=== PATIENT | female | born 1975 | race Caucasian/White ===

== ENCOUNTER 2018-12-18 11:07 | Emergency (ER) | payer BC, SELFPAY ==
[2018-12-18 11:12] VITALS: BP 132/87; PULSE 81; RESP 16; TEMP 36.3; O2SAT 99
--- NOTE | 2018-12-18 11:29 | W.ED.GENAD ---
Discharge Plan Disposition Patient Disposition: HOME Condition: Improving Discharge Details Chief Complaint: RespSymp Clinical Impression: Acute bronchitis Primary Care Provider: LUCILA HINES ED Provider: Robe Rojas Home Meds and New Rx's Prescriptions: New benzonatate [Tessalon Perles] 100 mg capsule 100 mg PO TID PRN (Reason: cough) Qty: 14 RF: 0 azithromycin 250 mg tablet See Rx Instructions .ROUTE .COMPLEX Qty: 6 RF: 0 Discharge Instructions Instructions: Acute Bronchitis (ED) Additional Instructions: Take medication as prescribed. Small, frequent sips of fluids to maintain hydration. May use Benadryl 25-50 mg at bedtime to assist with sleep in decongestion. Follow-up with regular doctor if not improving in 5 days time. Return for any acute concern Medical Decision Making 43-year-old female with antecedent 2 weeks of upper respiratory illness and seemed to get better and now has recurred over 5-7 days time with associated fever, cough, congestion. She is afebrile, well-appearing, with normal oxygenation. Likely she is progressing from a viral illness to a bacterial bronchitis and I will treat her with a course of azithromycin to cover atypical pathogens. She stable for outpatient management and will follow up with PMD if not improving HPI General Mode of arrival: ambulatory. Date/Time Provider Initiated Documentation: 12/18/18 11:10. Limitations to Documentation: no limitations. Information obtained by: patient. History of Present Illness 43 year old F presents to the emergency department with the chief complaint of Cough, fever, congestion, recurrent and now 1 week, described as moderate, Quality is described as dull and constant, and is localized to the chest. Patient reports no radiation. Patient started experiencing this day(s) and it has been constant. No relieving factors improve symptom(s), No exacerbating factors reported . Patient notes fever/chills and malaise. Patient did receive the following treatments prior to arrival, none Related Data Home Medications Medication Instructions Recorded Confirmed azithromycin See Rx Instructions .ROUTE 12/18/18 .COMPLEX #6 tab benzonatate [Tessalon Perles] 100 mg PO TID PRN #14 cap 12/18/18 Previous Rx's Medication Instructions Recorded azithromycin See Rx Instructions .ROUTE 12/18/18 .COMPLEX #6 tab benzonatate [Tessalon Perles] 100 mg PO TID PRN #14 cap 12/18/18 Allergies Allergy/AdvReac Type Severity Reaction Status Date / Time No Known Allergies Allergy Unverified 12/18/18 11:17 General Stated Complaint: RespSymp HYACINTH: 4 Review of Systems Review of Systems 8 systems reviewed and otherwise negative FOR[facility]LY [facility] Social History Smoking and Tabacco status: Never Exam Narrative Exam Narrative: GEN: awake, alert, tracks me through the room. Pleasant, well groomed, interactive. HEAD: Normocephalic, atraumatic ENT: Mucous membranes moist, oropharynx erythematous without swelling or exudate, External ear exam unremarkable EYES: PERRL, EOMI NECK: Full ROM, no SHABBIR, no menigismus CHEST/RESP: Nontender, clear to auscultation bilateral, no wheeze/rhonchi/rales CARDIOVASCULAR: RRR, no murmur, rub chai. 2+ Rad pulse bilateral ABDOMEN: Soft, nontender, no mass. +Bowel sounds EXT: Full ROM, no edema, no rash Neuro: Grossly normal neurologic exam, conversant, interactive. Psych: Speech fluent, thoughts congruent, affect normal Course Vital Signs Temperature 36.3 C L 12/18/18 11:12 Pulse 81 12/18/18 11:12 Respiratory Rate 16 12/18/18 11:12 Blood Pressure 132/87 12/18/18 11:12 Pulse Oximetry 99 12/18/18 11:12 Temperature 36.3 C L 12/18/18 11:12 Temperature Source Temporal Artery Scan 12/18/18 11:12 Pulse 81 12/18/18 11:12 Respiratory Rate 16 12/18/18 11:12 Respiratory Effort Non-Labored 12/18/18 11:17 Respiratory Depth Normal 12/18/18 11:17 Blood Pressure 132/87 12/18/18 11:12 Blood Pressure Position Sitting 12/18/18 11:12 Pulse Oximetry 99 12/18/18 11:12 Oxygen Delivery Method Room Air 12/18/18 11:12 Oxygen Flow Rate 0 12/18/18 11:12 Pain Level 0 12/18/18 11:12
== END 2018-12-18 11:35 | disposition home or self-care (01) ==
PROVIDERS: Emergency Provider Emergency Medicine; PCP Family Medicine
DX: J20.9 Acute bronchitis, unspecified (principal); R50.9 Fever, unspecified
CPT/HCPCS: 99283

== ENCOUNTER 2019-07-18 00:13 | Outpatient (CLI) | payer BC, SELFPAY ==
--- NOTE | 2019-07-18 08:22 | DI.MAMMO_ITS ---
SYMPTOM/DIAGNOSIS: SCREENING Z12.31 MAMMOGRAM: Mammograms were interpreted according to the usual protocol including computer analysis with CAD system, tomosynthesis and C view imaging. The breasts are heterogeneously dense. No dominant mass or clumped microcalcification is identified in either breast. Today's mammogram is compared with previous study of Oct 2016 and there has been no gross interval change in appearance since that time. CONCLUSION: No specific evidence of malignancy at this time. Routine screening examinations are suggested at yearly intervals due to the family history of breast carcinoma. Category 1, breast density category C. MQSA ASSESSMENT OF FINDINGS: Negative. Category 1. Patient will receive a letter notifying them of these results. Bi-RADS category C. The breasts are heterogeneously dense, which may obscure small masses.
== END 2019-07-18 00:33 ==
PROVIDERS: PCP Family Medicine; Visit Provider Family Medicine
DX: Z12.31 Encounter for screening mammogram for malignant neoplasm of breast (principal); Z80.3 Family history of malignant neoplasm of breast
CPT/HCPCS: 77063; 77067

== ENCOUNTER 2019-10-24 02:41 | Outpatient (CLI) | payer BC, SELFPAY ==
--- NOTE | 2019-10-24 08:08 | DI.US_ITS ---
EXAM: US PELVIS TRANSVAGINAL CLINICAL HISTORY: MENOMETRORRHAGIA, N92.1, ENLARGED UTERUS/IRREGULAR BLEEDING TECHNIQUE: Ultrasound performed using standard protocol. Transabdominal and transvaginal exams were performed COMPARISON: No exams were available for comparison FINDINGS: The transabdominal images are limited by lack of bladder distention. Ascites is noted in the pelvis a s well as in the right upper quadrant. The uterus is retroflexed. The uterus measures 10.9 x 6.5 x 6. 9 cm. Uterus was not well seen either transabdominally or transvaginally. There is a question of a 2 centimeter fibroid near the fundus. The endometrial stripe measures 7 millimeters in thickness. The o varies were not well seen. They are roughly normal in size. IMPRESSION: Limited exam. The ovaries were not visualized. The uterus is also suboptimally evaluated. Ascites is noted in the pelvis and right upper quadrant. A CT of the abdomen and pelvis is recommended if no t already performed elsewhere.
== END 2019-10-24 03:01 ==
PROVIDERS: PCP Family Medicine; Visit Provider Family Medicine
DX: N85.2 Hypertrophy of uterus (principal); N92.6 Irregular menstruation, unspecified; R18.8 Other ascites
CPT/HCPCS: 76830; 76856

== ENCOUNTER 2019-10-27 01:22 | Outpatient (CLI) | payer BC, SELFPAY ==
[2019-10-27 08:19] LABS: INR 1.1 (0.9-1.1); Prothrombin Time 10.9 sec (9.3-11.0)
[2019-10-27 09:20] LABS: ALT 14 U/L (14-59); AST 12 U/L (15-37); Albumin 3.1 g/dL (3.4-5.0); Alkaline Phosphatase 64 U/L (46-116); Anion Gap 8.9 mmol/L (3-11); BUN 12 mg/dL (7-18); Bilirubin, Total 0.2 mg/dL (0.2-1.0); CO2 27.1 mmol/L (21.0-32.0); CREATININE 0.73 mg/dL (0.55-1.02); Chloride 106 mmol/L (98-107); Glucose 107 mg/dL (74-106); Potassium 4.7 mmol/L (3.5-5.1); Sodium 142 mmol/L (136-145); Total Protein 6.7 g/dL (6.4-8.2)
== END 2019-10-27 01:42 ==
PROVIDERS: PCP Family Medicine; Visit Provider Family Medicine
DX: R18.8 Other ascites (principal)
CPT/HCPCS: 36415; 80053; 85610

== ENCOUNTER 2019-10-31 03:27 | Outpatient (CLI) | payer BC, SELFPAY ==
[2019-10-31] MEDS: Breeza Beverage 473 ML BTL PO (08:05)
[2019-10-31] MEDS: Omnipaque 350 MG/ML 100 ML BTL IJ (08:06)
[2019-10-31] MEDS: Omnipaque 350 MG/ML 50 ML BTL IJ (08:06)
--- NOTE | 2019-10-31 08:28 | DI.CT_ITS ---
EXAM: CT ABDOMEN PELVIS W CLINICAL HISTORY: ASCITES ON PELVIC US,R18.8,IRREGULAR MENSES, ? MASS OR CIRRHOTIC-APPEARING LIVER TECHNIQUE: Imaging Protocol: Axial computed tomography images with coronal and sagittal reformatted images were created and reviewed CONTRAST MATERIAL: Intravenous: Omnipaque 350 Contrast volume:100 mL contrast route:IV - Oral: Yes COMPARISON: No exams were available for comparison FINDINGS: ABDOMEN: Lung Bases: Unremarkable. Liver: There are several tiny hypodense lesions in the liver. They are too small for further characte rization. The portal, superior mesenteric and splenic veins are patent. Gallbladder and biliary tract: No radiodense calculus or dilation. Pancreas: Normal density, no abnormal calcifications or inflammatory process. Spleen: There is a 1.2 centimeter hypodense lesion at the superior aspect of the spleen. Kidneys: Normal size, contour and axis. No radiodense stones or obstructive uropathy. No masses seen. Adrenal glands: No masses seen. Abdominal Aorta: Abdominal portion non-dilated. PELVIS: Bladder: Symmetric distention, no gross wall thickening. Bowel: No obstruction or bowel wall thickening. The appendix is normal in size without evidence of ad jacent mesenteric fat stranding or adjacent fluid collection. Peritoneal cavity: There is a large amount of abdominal pelvic ascites. There are 4 dense masses see n in the dependent portion of the pelvis. The largest is seen anterior to the rectum and measures 5. 8 cm transverse by 4.5 cm AP by 4.3 cm craniocaudad. The next largest mass is seen in the left pelvi s and measures 5.9 cm AP by 3.5 cm transverse by 2.8 cm craniocaudad. Bones: Degenerative changes are seen in the spine. There is a sclerotic focus in the right iliac bon e adjacent to the sacroiliac joint. Reproductive organs: The uterus has a lobulated contour. It is heterogeneously enhancing. Ovaries a re visualized. They appear grossly unremarkable. Impression: 1. Four dense masses seen in the dependent portion of the pelvis. Metastatic disease, adenopathy and fibrosis should be considered. 2. Large abdominal and pelvic ascites. 3. Tiny hypodensities seen within the liver. They are too small for further characterization. 4. Density seen in the right iliac bone adjacent to the sacroiliac joint. All benign causes may be c onsidered. Given the above findings metastatic focus cannot be excluded. DATA REPOSITORY: All CT scans at this facility are submitted to the National Radiology Data Registry (NRDR) Dose Index Registry (DIR) with the [employer] (A[employer]). RADIATION OPTIMIZATION: All CT scans at this facility use at least one of these dose optimization te chniques: automated exposure control; mA and/or kV adjustment per patient size (includes targeted exa ms where dose is matched to clinical indication); or iterative reconstruction.
== END 2019-10-31 03:47 ==
PROVIDERS: PCP Family Medicine; Visit Provider Family Medicine
DX: R18.8 Other ascites (principal); N92.6 Irregular menstruation, unspecified; K76.89 Other specified diseases of liver; D73.89 Other diseases of spleen; R19.07 Generalized intra-abdominal and pelvic swelling, mass and lump
CPT/HCPCS: 74177; J3490; Q9967

== ENCOUNTER 2019-11-17 07:58 | Outpatient (CLI) | payer BC, SELFPAY ==
--- NOTE | 2019-11-17 09:06 | DI.MRI_ITS ---
EXAM: MR PELVIS WO/W CLINICAL HISTORY: PELVIC MASS, CA RECTOVAGINAL SEPTUM, C76.3. TECHNIQUE: Multiplanar multisequence MRI was performed. COMPARISON: CT ABDOMEN PELVIS W from 10/31/2019 FINDINGS: MR examination of the pelvis was performed according to the usual protocol including pre and post con trast multi planer T1 fat sat imaging. Recent CT showed multiple pelvic masses and marked abdominal ascites. These findings are again seen on MR. The masses measure in the 5.5-6 cm in diameter range a nd are mildly heterogeneous in signal with marked enhancement on post contrast imaging. Right ovary grossly unremarkable. Left ovary contains multiple cysts, indeterminate for neoplasm. Uterus contains an anterior lower uterine segment fibroid. Unremarkable appearance of the endometria l stripe. Multiple nabothian cysts noted. Note is also made of an approximately 18 millimeter in di ameter Bartholin's cyst. No gross mass noted in the region of the rectovaginal septum. No gross pel sonia adenopathy. Sclerotic right iliac bone lesion noted on CT shows mildly heterogeneous appearance on T1 and T2 weighted imaging with mild lesional enhancement noted on post contrast imaging, the poss ibility that this represents a metastatic lesion is raised. IMPRESSION: Multiple pelvic masses as noted on recent CT along with massive pelvo-abdominal ascites consistent wi th metastatic disease. Requisition raises the possibility of a mass of the rectovaginal septum and n o rectovaginal septum mass is identified. An 18 millimeter Bartholin's cyst and multiple nabothian c ysts are noted.
[2019-11-17] MEDS: Normal Saline Flush 10 ML SYR IVP (09:45)
[2019-11-17] MEDS: Gadoterate meglumine 20 ML VIAL 17 ML IVP (09:47)
== END 2019-11-17 08:18 ==
PROVIDERS: PCP Family Medicine; Visit Provider Obstetrics & Gynecology Gynecologic Oncology
DX: R19.09 Other intra-abdominal and pelvic swelling, mass and lump; R18.8 Other ascites; N83.292 Other ovarian cyst, left side; D25.9 Leiomyoma of uterus, unspecified; N88.8 Other specified noninflammatory disorders of cervix uteri
CPT/HCPCS: 72197

== ENCOUNTER 2019-12-19 07:12 | Day surgery (SDC) | payer BC, SELFPAY ==
--- NOTE | 2019-12-19 07:24 | HPE_ITS ---
Date of service: 12/19/19 Time of Service: 07:24 Assessment and Plan Assessment and plan (1) Ovarian cancer: Status: Chronic Assessment and plan: I offered Mediport placement. The procedure was described including the risks of infection, bleeding, thrombosis, injury to vascular structures, pneumothorax with need for chest tube placement. She agrees to proceed. Qualifiers: Laterality: unspecified laterality Qualified Code(s): C56.9 - Malignant neoplasm of unspecified ovary History of Present Illness Narrative: Patient presents for Mediport placement for chemotherapy as a part of treatment for ovarian cancer. Review of Systems Constitutional Constitutional: Denies fatigue and Denies headache(s) Eyes Eyes: Denies change in vision ENT Ears, Nose, Mouth, and Throat: Denies headache(s) and Denies neck mass Cardiovascular Cardiovascular: Denies chest pain, Denies edema, Denies palpitations and Denies dyspnea Respiratory Respiratory: Denies cough, Denies dyspnea and Denies wheezing Gastrointestinal Gastrointestinal: Denies hematochezia Musculoskeletal Musculoskeletal: Denies joint swelling Integumentary/Breasts Skin/Breast: Denies new lesions and Denies rash Neurologic Neurologic: Denies confusion, Denies headache(s) and Denies focal weakness Psychiatric Psychiatric: Reports system reviewed and no additional complaints, except as docu and Denies confusion Endocrine Endocrine: Denies fatigue and Denies palpitations Hematologic/Lymphatic Hematologic/Lymphatic: Denies easy bleeding and Denies lymphadenopathy Allergic/Immunologic Allergic/Immunologic: Denies wheezing [facility] Medical History (Updated 12/19/19 @ 08:05 by Saira Alexander MD) Ovarian cancer (Chronic) Surgical History Family hx total abdominal hysterectomy/bilateral salpingo-oophorectomy (Acute) 11/21/2019 Total abdominal hysterectomy, bilateral salpingo-oophorectomy, omentectomy, rectosigmoidectomy with end colostomy and Claire's pouch, cytoreduction with resection of pelvic masses, left ureterolysis, resection of tumor on bladder peritoneum, argon beam of tumor on posterior vagina and paracolic gutter, temporary bilater ureteral stent placement (removed upon completion of case) Social History Smoking/Tobacco Use Status: Never Alcohol Intake: current Alcohol Intake frequency: holidays/special occasions only Drug use: Never Substance use type: does not use Do you feel safe at home: Yes Do you feel safe in your relationship?: Yes Meds Home Medications and Allergies Home Medications Medication Instructions Recorded Confirmed Type acetaminophen 650 mg PO Q6H PRN PRN 12/15/19 12/19/19 History calcium carbonate-vit D3-min 1 tab PO DAILY 12/15/19 12/19/19 History ibuprofen 600 mg PO Q6H PRN 12/15/19 12/19/19 History multivitamin 1 cap PO DAILY 12/15/19 12/19/19 History omeprazole 20 mg PO DAILY 12/15/19 12/19/19 History oxycodone 5 mg PO Q6H PRN 12/15/19 12/15/19 History Allergies Allergy/AdvReac Type Severity Reaction Status Date / Time No Known Allergies Allergy Unverified 12/19/19 07:27 Exam Const General: not in acute distress Nutritional Appearance: well nourished Orientation: oriented x3 HENMT Head: normal to inspection Eyes Sclera: sclerae normal Pupils: PERRL Neck Neck: no lymphadenopathy Carotids: no bruits Resp Effort & Inspection: normal respiratory effort Auscultation: clear to auscultation bilaterally and no wheezes Cardio Rate: regular rate Rhythm: regular rhythm GI Inspection: non-distended Palpation: soft, no hepatosplenomegaly, no hernias and nontender Skin General skin exam: no rashes or lesions noted Neuro General: alert Cognition: normal cognition Extrem General: normal to inspection Psych Affect: normal affect Attitude: cooperative
[2019-12-19 07:29] VITALS: BP 127/85; PULSE 78; RESP 16; TEMP 36.6; O2SAT 100
[2019-12-19] MEDS: Lactated Ringers 1,000 ML 80 ML IV (07:46)
--- NOTE | 2019-12-19 08:16 | W.PM.DSUDISC ---
Discharge Plan Disposition Patient Disposition: HOME Condition: Good Discharge Details Reason For Visit: Mediport placement Attending Provider: Saira Alexander Primary Care Provider: LUCILA HINES Home Meds and New Rx's Prescriptions: Continued acetaminophen 325 mg Tablet 650 mg PO Q6H PRN PRNRF: 0 ibuprofen 200 mg Tablet 600 mg PO Q6H PRNRF: 0 omeprazole 20 mg Capsule,Delayed Release(Dr/Ec) 20 mg PO DAILY RF: 0 multivitamin Capsule 1 cap PO DAILY RF: 0 oxycodone 5 mg Tablet 5 mg PO Q6H PRNRF: 0 calcium carbonate-vit D3-min 600 mg calcium- 200 unit Tablet 1 tab PO DAILY RF: 0 Discharge Instructions Additional Instructions: The top bandage can be removed in 2-3 days. The steri strips underneath will usually stick for about a week. When the edges start to curl up, they can be removed. It is okay to shower tomorrow, the water can run over the dressing/steristrips Do not swim or soak in a tub for two weeks Call for any concerns including fever, shortness of breath, incision redness or drainage. Keep activity light for two weeks. Walking and stairs are fine. Do not drive if on narcotic pain meds or if limited by pain. May use Tylenol alternating with ibuprofen for pain control. Ice is also an option. The maximum dose for Tylenol is 4000 mg/day. May use ibuprofen 800 mg every 8 hours as needed. If concerned about constipation, you may use a stool softener or milk of magnesia. The port can be used immediately. If not in use it should be flushed every 4-6 weeks. Activity:: Activity as Tolerated Remove Dressings/Wound Care:: 48 hours Shower/Bathe:: 24 hours Diet:: As Tolerated DS: Diagnosis Discharge Diagnosis (1) Ovarian cancer: Status: Chronic (2) Port-A-Cath in place: Status: Acute
[2019-12-19] MEDS: ceFAZolin 2 GM/50 ML BAG IVPB (08:44)
[2019-12-19] MEDS: Lidocaine 1% Pres-Free 5 ML VIAL (08:54)
[2019-12-19] MEDS: Normal Saline 50 ML (09:06)
[2019-12-19] MEDS: Heparin 500 UNITS/5 ML SYRINGE (09:28)
--- NOTE | 2019-12-19 09:47 | DI.RAD_ITS ---
EXAM: XR PORTABLE CHEST AP INDICATION: Mediport placement. COMPARISON: No exams were available for comparison TECHNIQUE: 2D digital imaging was performed. FINDINGS: Heart size is within normal limits. A port has been placed via the left subclavian with the tip in t he SVC. There is no evidence of pneumothorax. The lungs appear clear. IMPRESSION: Satisfactory port placement.
--- NOTE | 2019-12-19 10:13 | DI.RAD_ITS ---
EXAM: RF LINE PLACEMENT OR CLINICAL HISTORY: ovarian cancer TECHNIQUE: C-arm fluoroscopy was provided for Dr. Alexander for guidance with placing a port. COMPARISON: No exams were available for comparison FINDINGS: Hard copy images show placement of port via the left subclavian. The tip projects in the expected l ocation of the superior vena cava. Please see procedure note for details. FLUORO TIME: 8.0 seconds
[2019-12-19 10:15] VITALS: BP 142/80; PULSE 60; RESP 18; TEMP 36.6; O2SAT 100
--- NOTE | 2019-12-19 15:32 | ROE_ITS ---
DATE OF PROCEDURE: December 19, 2019 PREOPERATIVE DIAGNOSIS: Ovarian cancer. POSTOPERATIVE DIAGNOSIS: Same. PROCEDURE: Left subclavian Mediport. SURGEON: Saira Alexander M.D. ANESTHESIA: Local and sedation. INDICATIONS: This is a 44-year-old woman who will soon begin chemotherapy for ovarian cancer. She p resents for a Mediport placement. PROCEDURE: She was placed supine on the operating table and her arms were carefully tucked. Her bandar ateral chest and neck were prepped and draped sterilely. The skin of the left chest wall was infiltr ated with local anesthetic. The 18 gauge needle was used to access the left subclavian vein after th ree passes. The wire threaded easily and was shown to be in the superior vena cava using fluoroscopy . The needle was removed and the wire clipped to the drape. An incision was made extending inferom edially from the wire and cautery used to create a pocket above the pectoralis muscle. The catheter was attached to the port and the catheter length trimmed using fluoroscopy. The Peel-Away and dilato r were passed over the wire and then the wire and dilator removed. The port catheter was passed down the Peel-Away, which was then removed. The catheter was shown to be in good position using fluoros copy. The port was sutured to the chest wall with #2-0 Prolene sutures and the subcutaneous tissue c losed with interrupted buried #3-0 Vicryl sutures. The skin was closed with a running #4-0 Monocryl subcuticular stitch. The port was accessed with the Jones needle and aspirated nicely. It was then flushed with 5 cc's of heparinized saline. The wound was dressed with Steri-Strips, a 2x2 and a Tega derm. She tolerated the procedure well and was stable to recovery. A post-procedure chest film was reviewed and showed the port to be in good position and no evidence of pneumothorax. cc: Elizabeth Vargas M.D.
== END 2019-12-19 10:35 | disposition home or self-care (01) ==
PROVIDERS: PCP Family Medicine; Visit Provider Surgery
PROC: (CPT 36561; principal; 2019-12-19 07:30)
DX: C56.9 Malignant neoplasm of unspecified ovary (principal); Z45.2 Encounter for adjustment and management of vascular access device
CPT/HCPCS: 36561; 77001; NC; 71045; C1788; J0690; J1100; J1885; J2001; J2250; J2405

== ENCOUNTER 2020-01-14 13:23 | Emergency (ER) | payer BC, SELFPAY ==
[2020-01-14] VITALS (12 sets, daily range): BP systolic 126–157; BP diastolic 73–93; PULSE 78–94; RESP 16–17; TEMP 36.6; O2SAT 86–100
--- NOTE | 2020-01-14 13:55 | W.ED.GENAD ---
Discharge Plan Disposition Patient Disposition: HOME Condition: Stable Discharge Details Chief Complaint: Abd Prob Clinical Impression: Rectal pressure, Rectal bleeding, Status post colostomy Primary Care Provider: LUCILA HINES ED Provider: Chelly Hays Home Meds and New Rx's Prescriptions: Continued acetaminophen 325 mg Tablet 650 mg PO Q6H PRN PRNRF: 0 ibuprofen 200 mg Tablet 600 mg PO Q6H PRNRF: 0 multivitamin Capsule 1 cap PO DAILY RF: 0 calcium carbonate-vit D3-min 600 mg calcium- 200 unit Tablet 1 tab PO DAILY RF: 0 Discharge Instructions Instructions: Rectal Bleeding (ED) Additional Instructions: It can be expected to have rectal pressure and mucus with a colostomy. Sometimes with increased pressure, you can have some bleeding. Call your colorectal surgeon tomorrow morning to schedule a follow-up appointment for reevaluation. Drink plenty of fluids and get plenty of rest. Return to the emergency department if you develop any worsening or new concerning symptoms such as fever, abdominal pain, vomiting, or worsening rectal bleeding. Discharge Data Discharge Physician: Chelly Hays Medical Decision Making 1345 -- 44-year-old female with history of ovarian cancer with metastasis to the colon with history of hysterectomy, bilateral salpingotomy, rectosigmoidectomy in November at [facility] presents with persistent rectal pressure and clear mucus since the surgery now with worsening rectal pressure and bloody mucus today. First chemo treatment 3 days ago. Denies fever, abdominal pain, or vomiting. Vitals within normal limits. Patient appears nontoxic. Abdomen soft nontender. Formed brown stool in colostomy bag. Normal external rectal exam. We will check screening labs and discuss with [facility] general surgery. 1700 --labs reviewed and unremarkable. Normal white blood cell count, hemoglobin and electrolytes. Lactate normal. Urinalysis negative. 1715 --Case discussed with [facility] general [facility] who reviewed patient's records -they state that it can be expected for patient to have rectal pressure with bloody mucus with a history of her surgery. Reassuring that patient has no fever, normal vitals, normal white blood cell count and hemoglobin that patient symptoms are expected and can recur. Will leave a note for patient's colorectal surgeon and gynecology oncologist. Patient had significant improvement with dose of morphine here. She was given another dose prior to discharge. She feels comfortable going home. Discussed that Tylenol would be recommended for continued pain. Discussed the concern with narcotics due to risk of constipation with her colostomy. Patient states she would rather not have narcotics and will call her colorectal surgeon tomorrow for follow-up. Medical Records Medical records reviewed: Yes I reviewed the patient's medical records. Lab Data Lab results reviewed: Yes I reviewed the patient's lab results. Labs: Laboratory Tests Range/Units 01/14/20 01/14/20 01/14/20 14:41 14:41 14:41 WBC (4.4-10.8) k/cumm 9.37 RBC (4.00-5.20) m/cumm 5.11 Hgb (12.0-15.5) g/dL 12.8 Hct (36.0-46.0) % 39.4 MCV (80-95) fL 77.1 L MCH (27.0-33.0) pg 25.0 L MCHC (32.0-36.0) g/dL 32.5 RDW (11.7-14.6) % 14.4 Plt Count (130-400) x1000/uL 466 H MPV (8.0-11.0) fL 9.2 Immature Gran % % 0.1 Neutrophils % 78.4 Lymphocytes % 18.2 Monocytes % 2.6 Eosinophils % 0.5 Basophils % 0.2 Absolute Neutrophils (1.2-6.7) k/cumm 7.34 H Absolute Lymphocytes (1.2-3.4) k/cumm 1.71 Absolute Monocytes (0.11-0.7) k/cumm 0.24 Absolute Eosinophils (0.0-0.7) k/cumm 0.05 Absolute Basophils (0.0-0.2) k/cumm 0.02 Sodium (136-145) mmol/L 137 Potassium (3.5-5.1) mmol/L 3.8 Chloride (98-107) mmol/L 100 Carbon Dioxide (21.0-32.0) mmol/L 26.7 Anion Gap (3-11) mmol/L 10.3 BUN (7-18) mg/dL 13 Creatinine (0.55-1.02) mg/dL 0.69 Estimated GFR/1.73 m2 (mL/min/1.73m2) >= 60.00 Glucose (74-106) mg/dL 111 H Lactate (0.6-1.4) mmol/L 1.3 Calcium (8.5-10.1) mg/dL 9.1 Total Bilirubin (0.2-1.0) mg/dL 0.6 AST (15-37) U/L 14 L ALT (14-59) U/L 17 Alkaline Phosphatase (46-116) U/L 73 Total Protein (6.4-8.2) g/dL 7.6 Albumin (3.4-5.0) g/dL 3.8 Urine Color (Yellow) Urine Clarity (Clear) Urine pH (5-8) Ur Specific [place] (1.005-1.025) Urine Protein (Negative) mg/dL Urine Ketones (Negative) mg/dL Urine Blood (Negative) Urine Nitrite (Negative) Urine Bilirubin (Negative) Urine Urobilinogen (Up TO 0.2) EU/dL Ur Leukocyte Esterase (Negative) Urine Glucose (Negative) mg/dL Range/Units 01/14/20 15:40 WBC (4.4-10.8) k/cumm RBC (4.00-5.20) m/cumm Hgb (12.0-15.5) g/dL Hct (36.0-46.0) % MCV (80-95) fL MCH (27.0-33.0) pg MCHC (32.0-36.0) g/dL RDW (11.7-14.6) % Plt Count (130-400) x1000/uL MPV (8.0-11.0) fL Immature Gran % % Neutrophils % Lymphocytes % Monocytes % Eosinophils % Basophils % Absolute Neutrophils (1.2-6.7) k/cumm Absolute Lymphocytes (1.2-3.4) k/cumm Absolute Monocytes (0.11-0.7) k/cumm Absolute Eosinophils (0.0-0.7) k/cumm Absolute Basophils (0.0-0.2) k/cumm Sodium (136-145) mmol/L Potassium (3.5-5.1) mmol/L Chloride (98-107) mmol/L Carbon Dioxide (21.0-32.0) mmol/L Anion Gap (3-11) mmol/L BUN (7-18) mg/dL Creatinine (0.55-1.02) mg/dL Estimated GFR/1.73 m2 (mL/min/1.73m2) Glucose (74-106) mg/dL Lactate (0.6-1.4) mmol/L Calcium (8.5-10.1) mg/dL Total Bilirubin (0.2-1.0) mg/dL AST (15-37) U/L ALT (14-59) U/L Alkaline Phosphatase (46-116) U/L Total Protein (6.4-8.2) g/dL Albumin (3.4-5.0) g/dL Urine Color (Yellow) Straw Urine Clarity (Clear) Clear Urine pH (5-8) 7.0 Ur Specific [place] (1.005-1.025) 1.020 Urine Protein (Negative) mg/dL Negative Urine Ketones (Negative) mg/dL Trace H Urine Blood (Negative) Negative Urine Nitrite (Negative) Negative Urine Bilirubin (Negative) Negative Urine Urobilinogen (Up TO 0.2) EU/dL 0.2 Ur Leukocyte Esterase (Negative) Negative Urine Glucose (Negative) mg/dL Negative ECG Data Attestation: I personally reviewed and interpreted this ECG (s) as follows: HPI General Mode of arrival: ambulatory. Date/Time Provider Initiated Documentation: 01/14/20 13:25. Limitations to Documentation: no limitations. Information obtained by: patient. HPI Narrative: Patient is a 44-year-old female who has a history of ovarian cancer with metastasis to the colon who is 2 months status post total abdominal hysterectomy, bilateral salpingo-neurectomy, rectosigmoidectomy presents for persistent rectal pain since her surgery in November, worse today and now with bloody mucus from rectum. She attempted to call her surgeons at [facility] but did not get a response. She states she has had rectal pain with clear mucus since her surgery, but states the rectal pressure is worse today and now associated with bloody mucus. She states she received her first chemo treatment 3 days ago. She denies any fever, nausea, vomiting, abdominal pain. Related Data Home Medications Medication Instructions Recorded Confirmed acetaminophen 650 mg PO Q6H PRN PRN 12/15/19 01/14/20 calcium carbonate-vit D3-min 1 tab PO DAILY 12/15/19 01/14/20 ibuprofen 600 mg PO Q6H PRN 12/15/19 01/14/20 multivitamin 1 cap PO DAILY 12/15/19 01/14/20 Allergies Allergy/AdvReac Type Severity Reaction Status Date / Time No Known Allergies Allergy Unverified 01/14/20 13:35 General Stated Complaint: Abd Prob HYACINTH: 3 Review of Systems All systems reviewed & are unremarkable except as noted in HPI and below Constitutional Constitutional: Reports as per HPI, Denies chills and Denies fever(s) Eyes Eyes: Denies blurry vision ENT Ears, Nose, Mouth, and Throat: Denies dizziness, Denies sore throat and Denies throat swelling Cardiovascular Cardiovascular: Denies chest pain and Denies dyspnea Respiratory Respiratory: Denies cough and Denies dyspnea Gastrointestinal Gastrointestinal: Denies abdominal pain, Denies diarrhea, Denies vomiting and Reports other (Rectal pain, bloody mucus from rectum) Genitourinary Genitourinary: Denies hematuria and Denies dysuria Musculoskeletal Musculoskeletal: Denies back pain and Denies numbness Integumentary/Breasts Skin/Breast: Denies lesions and Denies rash Neurologic Neurologic: Denies dizziness, Denies focal weakness and Denies numbness Allergic/Immunologic Allergic/Immunologic: Denies throat swelling [facility] Medical History (Updated 01/14/20 @ 17:10 by Chelly Hays DO) Ovarian cancer (Chronic) Social History Smoking/Tobacco Use Status: Never Alcohol Intake: current Alcohol Intake frequency: holidays/special occasions only Drug use: Never Substance use type: does not use Do you feel safe at home: Yes Do you feel safe in your relationship?: Yes Exam Const General: cooperative, healthy appearing and no acute distress HENMT Head: normal to inspection Face and sinus: normal facial exam Eyes General: appearance normal, both eyes and all related structures EOM: EOM intact bilaterally Neck Neck: normal visual inspection and No submandibular swelling Lymphatic: no lymphadenopathy noted Chest Chest: normal inspection of the chest and no tenderness Resp Effort & Inspection: normal respiratory effort and able to speak in complete sentences Auscultation: clear to auscultation bilaterally Cardio Rate: regular rate Rhythm: regular rhythm GI Inspection: normal to inspection Palpation: soft, not firm and not rigid Auscultation: normal bowel sounds Other: Colostomy bag noted in left lower quadrant with brown formed stool in bag. No blood noted. Normal inspection to rectum. No hemorrhoids. No blood noted around rectum. Guaiac negative. Skin General skin exam: no rashes or lesions noted Neuro General: alert, awake and oriented x3 Cognition: normal cognition Speech: speech normal Motor: muscle tone normal throughout Sensory Exam: no sensory deficits noted Extrem General: normal to inspection, full ROM, normal capillary refill, no calf tenderness bilaterally and no edema Psych Appearance: grossly normal Mental Status: mental status grossly normal Speech and Movement: speech and movement normal Affect: normal affect Course Vital Signs Vital signs: Vital Signs Temperature 97.9 F 01/14/20 13:30 Pulse 94 H 01/14/20 13:30 Respiratory Rate 16 01/14/20 13:30 Blood Pressure 157/93 H 01/14/20 13:30 Pulse Oximetry 100 01/14/20 13:30 Temperature 97.9 F 01/14/20 13:30 Temperature Source Skin 01/14/20 13:30 Pulse 94 H 01/14/20 13:30 Respiratory Rate 16 01/14/20 13:30 Respiratory Effort Non-Labored 01/14/20 13:30 Blood Pressure 157/93 H 01/14/20 13:30 Blood Pressure Position Sitting 01/14/20 13:30 Pulse Oximetry 100 01/14/20 13:30 Oxygen Delivery Method Room Air 01/14/20 13:30 Oxygen Flow Rate 0 01/14/20 13:30 Pain Level 6 01/14/20 13:30
[2020-01-14 14:51] LABS: Lactate 1.3 mmol/L (0.6-1.4)
[2020-01-14 14:52] LABS: Abs Immature Grans 0.01 k/cumm (0.0-0.09); Absolute Basophil Count 0.02 k/cumm (0.0-0.2); Absolute Eosinophil Count 0.05 k/cumm (0.0-0.7); Absolute Lymphocyte Count 1.71 k/cumm (1.2-3.4); Absolute Monocyte Count 0.24 k/cumm (0.11-0.7); Absolute Neutrophil Count 7.34 k/cumm (1.2-6.7); Basophils % 0.2; Eosinophils % 0.5; HCT 39.4 % (36.0-46.0); HGB 12.8 g/dL (12.0-15.5); Immature Grans % 0.1 %; Lymphocytes % 18.2; Mean Corp. HGB Concentration 32.5 g/dL (32.0-36.0); Mean Corpuscular Volume 77.1 fL (80-95); Mean Platelet Volume 9.2 fL (8.0-11.0); Monocytes % 2.6; Neutrophils % 78.4; Platelet Count 466 x1000/uL (130-400); RBC 5.11 m/cumm (4.00-5.20); RBC Distribution Width 14.4 % (11.7-14.6); White Blood Cell Count 9.37 k/cumm (4.4-10.8)
[2020-01-14] MEDS: Normal Saline 1,000 ML 1000 ML IV (14:55)
[2020-01-14 15:20] LABS: ALT 17 U/L (14-59); Albumin 3.8 g/dL (3.4-5.0); Alkaline Phosphatase 73 U/L (46-116); Anion Gap 10.3 mmol/L (3-11); BUN 13 mg/dL (7-18); Bilirubin, Total 0.6 mg/dL (0.2-1.0); CO2 26.7 mmol/L (21.0-32.0); CREATININE 0.69 mg/dL (0.55-1.02); Calcium 9.1 mg/dL (8.5-10.1); Chloride 100 mmol/L (98-107); Glucose 111 mg/dL (74-106); Potassium 3.8 mmol/L (3.5-5.1); Sodium 137 mmol/L (136-145); Total Protein 7.6 g/dL (6.4-8.2)
[2020-01-14 15:31] LABS: AST 14 U/L (15-37)
[2020-01-14 15:47] LABS: Bilirubin Negative (Negative); Blood Negative (Negative); Clarity Clear (Clear); Glucose Negative (Negative); Ketones Trace mg/dL (Negative); Leukocyte Esterase Negative (Negative); Nitrite Negative (Negative); Urobilinogen 0.2 EU/dL (Up TO 0.2)
--- NOTE | 2020-01-14 16:49 | NUR.NOTE ---
Nursing Note: Pt care report transferred to William (RN).
== END 2020-01-14 18:35 | disposition home or self-care (01) ==
PROVIDERS: Emergency Provider Physician Assistant; PCP Family Medicine
DX: K62.5 Hemorrhage of anus and rectum (principal); K62.89 Other specified diseases of anus and rectum; Z93.3 Colostomy status; C56.9 Malignant neoplasm of unspecified ovary; C78.5 Secondary malignant neoplasm of large intestine and rectum; Z79.899 Other long term (current) drug therapy; Z90.49 Acquired absence of other specified parts of digestive tract
CPT/HCPCS: 36415; 80053; 96361; 96376; 99284; 81003; 83605; 85025

== ENCOUNTER 2020-02-01 01:18 | Outpatient (RCR) | payer BC, SELFPAY ==
[2020-01-11] MEDS: Normal Saline Flush 10 ML SYR IVP (07:43)
[2020-01-11 08:03] LABS: Abs Immature Grans 0.02 k/cumm (0.0-0.09); Absolute Basophil Count 0.05 k/cumm (0.0-0.2); Absolute Lymphocyte Count 2.41 k/cumm (1.2-3.4); Absolute Monocyte Count 0.57 k/cumm (0.11-0.7); Basophils % 0.6; Eosinophils % 2.5; HCT 38.8 % (36.0-46.0); HGB 12.1 g/dL (12.0-15.5); Immature Grans % 0.2 %; Lymphocytes % 29.9; Mean Corp. HGB Concentration 31.2 g/dL (32.0-36.0); Mean Corpuscular Hemoglobin 24.7 pg (27.0-33.0); Mean Corpuscular Volume 79.2 fL (80-95); Mean Platelet Volume 8.7 fL (8.0-11.0); Monocytes % 7.1; Neutrophils % 59.7; Platelet Count 519 x1000/uL (130-400); RBC Distribution Width 14.8 % (11.7-14.6); White Blood Cell Count 8.05 k/cumm (4.4-10.8)
[2020-01-11 08:20] LABS: ALT 14 U/L (14-59); AST 8 U/L (15-37); Albumin 3.7 g/dL (3.4-5.0); Alkaline Phosphatase 79 U/L (46-116); Anion Gap 9.2 mmol/L (3-11); BUN 20 mg/dL (7-18); Bilirubin, Total 0.4 mg/dL (0.2-1.0); CO2 27.8 mmol/L (21.0-32.0); CREATININE 0.75 mg/dL (0.55-1.02); Calcium 9.2 mg/dL (8.5-10.1); Chloride 102 mmol/L (98-107); Glucose 104 mg/dL (74-106); Potassium 4.1 mmol/L (3.5-5.1); Sodium 139 mmol/L (136-145); Total Protein 7.4 g/dL (6.4-8.2)
[2020-01-12 09:51] LABS: CA 125 15 U/mL (<30)
[2020-01-22] MEDS: Normal Saline Flush 10 ML SYR IVP (08:18)
[2020-01-22] MEDS: Heparin 500 UNITS/5 ML SYRINGE IV (08:18)
[2020-01-22 08:32] LABS: Abs Immature Grans 0.01 k/cumm (0.0-0.09); Absolute Basophil Count 0.04 k/cumm (0.0-0.2); Absolute Eosinophil Count 0.06 k/cumm (0.0-0.7); Absolute Lymphocyte Count 1.68 k/cumm (1.2-3.4); Absolute Monocyte Count 0.48 k/cumm (0.11-0.7); Absolute Neutrophil Count 1.47 k/cumm (1.2-6.7); Basophils % 1.1; Eosinophils % 1.6; HCT 36.4 % (36.0-46.0); HGB 11.6 g/dL (12.0-15.5); Immature Grans % 0.3 %; Lymphocytes % 44.9; Mean Corp. HGB Concentration 31.9 g/dL (32.0-36.0); Mean Corpuscular Hemoglobin 25.4 pg (27.0-33.0); Mean Corpuscular Volume 79.8 fL (80-95); Mean Platelet Volume 8.4 fL (8.0-11.0); Monocytes % 12.8; Neutrophils % 39.3; Platelet Count 415 x1000/uL (130-400); RBC 4.56 m/cumm (4.00-5.20); RBC Distribution Width 14.4 % (11.7-14.6); White Blood Cell Count 3.74 k/cumm (4.4-10.8)
[2020-01-22 09:03] LABS: ALT 22 U/L (14-59); AST 12 U/L (15-37); Albumin 3.5 g/dL (3.4-5.0); Alkaline Phosphatase 79 U/L (46-116); Anion Gap 7.7 mmol/L (3-11); BUN 15 mg/dL (7-18); Bilirubin, Total 0.2 mg/dL (0.2-1.0); CO2 29.3 mmol/L (21.0-32.0); CREATININE 0.72 mg/dL (0.55-1.02); Calcium 8.7 mg/dL (8.5-10.1); Chloride 104 mmol/L (98-107); Glucose 107 mg/dL (74-106); Sodium 141 mmol/L (136-145); Total Protein 7.2 g/dL (6.4-8.2)
[2020-01-23 10:30] LABS: CA 125 12 U/mL (<30)
[2020-02-01] MEDS: Normal Saline Flush 10 ML SYR IVP (07:41)
[2020-02-01 07:56] LABS: Abs Immature Grans 0.05 k/cumm (0.0-0.09); Absolute Basophil Count 0.09 k/cumm (0.0-0.2); Absolute Eosinophil Count 0.07 k/cumm (0.0-0.7); Absolute Lymphocyte Count 2.81 k/cumm (1.2-3.4); Absolute Monocyte Count 0.74 k/cumm (0.11-0.7); Absolute Neutrophil Count 6.09 k/cumm (1.2-6.7); Basophils % 0.9; Eosinophils % 0.7; HGB 12.1 g/dL (12.0-15.5); Immature Grans % 0.5 %; Lymphocytes % 28.5; Mean Corp. HGB Concentration 31.8 g/dL (32.0-36.0); Mean Corpuscular Hemoglobin 25.1 pg (27.0-33.0); Mean Corpuscular Volume 78.8 fL (80-95); Mean Platelet Volume 8.4 fL (8.0-11.0); Monocytes % 7.5; Neutrophils % 61.9; Platelet Count 383 x1000/uL (130-400); RBC 4.82 m/cumm (4.00-5.20); White Blood Cell Count 9.85 k/cumm (4.4-10.8)
[2020-02-01 07:57] LABS: RBC Distribution Width 14.9 % (11.7-14.6)
[2020-02-01 08:13] LABS: ALT 19 U/L (14-59); AST 13 U/L (15-37); Albumin 3.4 g/dL (3.4-5.0); Alkaline Phosphatase 85 U/L (46-116); BUN 17 mg/dL (7-18); Bilirubin, Total 0.2 mg/dL (0.2-1.0); Calcium 9.3 mg/dL (8.5-10.1); Chloride 103 mmol/L (98-107); Glucose 112 mg/dL (74-106); Potassium 4.1 mmol/L (3.5-5.1); Sodium 140 mmol/L (136-145); Total Protein 7.2 g/dL (6.4-8.2)
[2020-02-02 13:02] LABS: CA 125 15 U/mL (<30)
== END 2020-02-06 23:59 | disposition home or self-care (01) ==
LOC: INF 01:18
PROVIDERS: PCP Family Medicine; Visit Provider Obstetrics & Gynecology Gynecologic Oncology
DX: C56.9 Malignant neoplasm of unspecified ovary (principal)
CPT/HCPCS: 36591; 80053; 86304; 85025

== ENCOUNTER 2020-02-22 01:39 | Outpatient (RCR) | payer BC, SELFPAY ==
[2020-02-22 07:44] LABS: Abs Immature Grans 0.03 k/cumm (0.0-0.09); Absolute Basophil Count 0.03 k/cumm (0.0-0.2); Absolute Eosinophil Count 0.03 k/cumm (0.0-0.7); Absolute Lymphocyte Count 2.44 k/cumm (1.2-3.4); Absolute Monocyte Count 0.59 k/cumm (0.11-0.7); Absolute Neutrophil Count 4.69 k/cumm (1.2-6.7); Basophils % 0.4; Eosinophils % 0.4; HCT 37.1 % (36.0-46.0); HGB 11.9 g/dL (12.0-15.5); Immature Grans % 0.4 %; Lymphocytes % 31.2; Mean Corp. HGB Concentration 32.1 g/dL (32.0-36.0); Mean Corpuscular Hemoglobin 25.4 pg (27.0-33.0); Mean Corpuscular Volume 79.3 fL (80-95); Mean Platelet Volume 7.8 fL (8.0-11.0); Monocytes % 7.6; Platelet Count 333 x1000/uL (130-400); RBC 4.68 m/cumm (4.00-5.20); RBC Distribution Width 15.4 % (11.7-14.6); White Blood Cell Count 7.81 k/cumm (4.4-10.8)
[2020-02-22] MEDS: Normal Saline Flush 10 ML SYR IVP (07:47)
[2020-02-22 08:00] LABS: ALT 19 U/L (14-59); AST 14 U/L (15-37); Albumin 3.3 g/dL (3.4-5.0); Alkaline Phosphatase 86 U/L (46-116); BUN 21 mg/dL (7-18); Bilirubin, Total 0.3 mg/dL (0.2-1.0); Chloride 102 mmol/L (98-107); Glucose 98 mg/dL (74-106); Potassium 4.2 mmol/L (3.5-5.1); Sodium 139 mmol/L (136-145); Total Protein 7.3 g/dL (6.4-8.2)
[2020-02-23 13:58] LABS: CA 125 10 U/mL (<30)
== END 2020-03-07 23:59 | disposition home or self-care (01) ==
LOC: INF 01:39
PROVIDERS: PCP Family Medicine; Visit Provider Obstetrics & Gynecology Gynecologic Oncology
DX: C56.9 Malignant neoplasm of unspecified ovary (principal); Z45.2 Encounter for adjustment and management of vascular access device
CPT/HCPCS: 36591; 80053; 86304; 85025

== ENCOUNTER 2020-04-04 02:50 | Outpatient (RCR) | payer BC, SELFPAY ==
[2020-03-14] MEDS: Normal Saline Flush 10 ML SYR IVP (07:43)
[2020-03-14 07:44] LABS: Abs Immature Grans 0.03 k/cumm (0.0-0.09); Absolute Basophil Count 0.04 k/cumm (0.0-0.2); Absolute Eosinophil Count 0.03 k/cumm (0.0-0.7); Absolute Lymphocyte Count 2.63 k/cumm (1.2-3.4); Absolute Monocyte Count 0.54 k/cumm (0.11-0.7); Basophils % 0.6; Eosinophils % 0.5; HCT 35.3 % (36.0-46.0); HGB 11.5 g/dL (12.0-15.5); Immature Grans % 0.5 %; Lymphocytes % 40.6; Mean Corp. HGB Concentration 32.6 g/dL (32.0-36.0); Mean Corpuscular Hemoglobin 26.1 pg (27.0-33.0); Mean Corpuscular Volume 80.2 fL (80-95); Mean Platelet Volume 7.9 fL (8.0-11.0); Monocytes % 8.3; Neutrophils % 49.5; Platelet Count 271 x1000/uL (130-400); RBC Distribution Width 16.2 % (11.7-14.6); White Blood Cell Count 6.47 k/cumm (4.4-10.8)
[2020-03-14 08:06] LABS: ALT 20 U/L (14-59); AST 14 U/L (15-37); Albumin 3.2 g/dL (3.4-5.0); Alkaline Phosphatase 86 U/L (46-116); Anion Gap 9.4 mmol/L (3-11); BUN 15 mg/dL (7-18); Bilirubin, Total 0.2 mg/dL (0.2-1.0); CO2 27.6 mmol/L (21.0-32.0); CREATININE 0.77 mg/dL (0.55-1.02); Calcium 8.7 mg/dL (8.5-10.1); Chloride 102 mmol/L (98-107); Glucose 99 mg/dL (74-106); Potassium 3.8 mmol/L (3.5-5.1); Sodium 139 mmol/L (136-145); Total Protein 7.2 g/dL (6.4-8.2)
[2020-03-15 09:46] LABS: CA 125 9 U/mL (<30)
[2020-04-04] MEDS: Normal Saline Flush 10 ML SYR IVP (07:21)
[2020-04-04 07:27] LABS: Abs Immature Grans 0.05 k/cumm (0.0-0.09); Absolute Basophil Count 0.03 k/cumm (0.0-0.2); Absolute Eosinophil Count 0.04 k/cumm (0.0-0.7); Absolute Lymphocyte Count 2.59 k/cumm (1.2-3.4); Absolute Monocyte Count 0.61 k/cumm (0.11-0.7); Absolute Neutrophil Count 3.13 k/cumm (1.2-6.7); Basophils % 0.5; Eosinophils % 0.6; HCT 35.3 % (36.0-46.0); HGB 11.6 g/dL (12.0-15.5); Immature Grans % 0.8 %; Lymphocytes % 40.2; Mean Corp. HGB Concentration 32.9 g/dL (32.0-36.0); Mean Corpuscular Hemoglobin 26.5 pg (27.0-33.0); Mean Corpuscular Volume 80.6 fL (80-95); Mean Platelet Volume 8.1 fL (8.0-11.0); Monocytes % 9.5; Neutrophils % 48.4; Platelet Count 234 x1000/uL (130-400); RBC 4.38 m/cumm (4.00-5.20); RBC Distribution Width 16.7 % (11.7-14.6); White Blood Cell Count 6.45 k/cumm (4.4-10.8)
[2020-04-04 07:50] LABS: ALT 23 U/L (14-59); AST 18 U/L (15-37); Albumin 3.4 g/dL (3.4-5.0); Alkaline Phosphatase 84 U/L (46-116); Anion Gap 4.7 mmol/L (3-11); BUN 18 mg/dL (7-18); Bilirubin, Total 0.3 mg/dL (0.2-1.0); CO2 29.3 mmol/L (21.0-32.0); CREATININE 0.85 mg/dL (0.55-1.02); Chloride 103 mmol/L (98-107); Glucose 123 mg/dL (74-106); Potassium 3.7 mmol/L (3.5-5.1); Sodium 137 mmol/L (136-145); Total Protein 7.3 g/dL (6.4-8.2)
[2020-04-05 11:54] LABS: CA 125 7 U/mL (<30)
== END 2020-04-07 23:59 | disposition home or self-care (01) ==
LOC: INF 02:50
PROVIDERS: PCP Family Medicine; Visit Provider Obstetrics & Gynecology Gynecologic Oncology
DX: C56.9 Malignant neoplasm of unspecified ovary (principal); Z45.2 Encounter for adjustment and management of vascular access device
CPT/HCPCS: 36591; 80053; 86304; 85025

== ENCOUNTER 2020-04-25 03:59 | Outpatient (RCR) | payer BC, SELFPAY ==
[2020-04-25 07:12] LABS: Abs Immature Grans 0.02 k/cumm (0.0-0.09); Absolute Basophil Count 0.02 k/cumm (0.0-0.2); Absolute Eosinophil Count 0.02 k/cumm (0.0-0.7); Absolute Lymphocyte Count 2.55 k/cumm (1.2-3.4); Absolute Monocyte Count 0.57 k/cumm (0.11-0.7); Absolute Neutrophil Count 2.65 k/cumm (1.2-6.7); Basophils % 0.3; Eosinophils % 0.3; HCT 35.3 % (36.0-46.0); HGB 11.6 g/dL (12.0-15.5); Immature Grans % 0.3 %; Lymphocytes % 43.7; Mean Corp. HGB Concentration 32.9 g/dL (32.0-36.0); Mean Corpuscular Hemoglobin 27.1 pg (27.0-33.0); Mean Corpuscular Volume 82.5 fL (80-95); Mean Platelet Volume 8.4 fL (8.0-11.0); Monocytes % 9.8; Neutrophils % 45.6; Platelet Count 212 x1000/uL (130-400); RBC 4.28 m/cumm (4.00-5.20); RBC Distribution Width 16.9 % (11.7-14.6); White Blood Cell Count 5.83 k/cumm (4.4-10.8)
[2020-04-25] MEDS: Normal Saline Flush 10 ML SYR IVP (07:14)
[2020-04-25 07:24] LABS: ALT 23 U/L (14-59); AST 20 U/L (15-37); Albumin 3.6 g/dL (3.4-5.0); Alkaline Phosphatase 80 U/L (46-116); BUN 19 mg/dL (7-18); Bilirubin, Total 0.4 mg/dL (0.2-1.0); CREATININE 0.95 mg/dL (0.55-1.02); Chloride 102 mmol/L (98-107); Glucose 140 mg/dL (74-106); Potassium 3.9 mmol/L (3.5-5.1); Sodium 137 mmol/L (136-145); Total Protein 7.4 g/dL (6.4-8.2)
[2020-04-26 11:31] LABS: CA 125 9 U/mL (<30)
== END 2020-05-07 23:59 | disposition home or self-care (01) ==
LOC: INF 03:59
PROVIDERS: PCP Family Medicine; Visit Provider Obstetrics & Gynecology Gynecologic Oncology
DX: C56.9 Malignant neoplasm of unspecified ovary (principal); Z45.2 Encounter for adjustment and management of vascular access device
CPT/HCPCS: 36591; 80053; 86304; 85025

== ENCOUNTER 2020-08-13 00:33 | Outpatient (CLI) | payer OTHER, SELFPAY ==
--- NOTE | 2020-08-13 | DI.MAMMO_ITS ---
EXAM: MAMMO SCREENING CLINICAL HISTORY: SCREENING,Z12.31 TECHNIQUE: Mammograms were interpreted according to the usual protocol including computer analysis w [employer] CAD system, tomosynthesis and C-view imaging. COMPARISON: FINDINGS: The breasts are heterogeneously dense. No dominant mass or clumped microcalcification is identified in either breast. Current examination is compared with previous examinations including July and there has been no gross interval change in appearance in comparison with the prior studies. IMPRESSION: No specific evidence of malignancy at this time. Routine screening examinations are suggested at yea rly intervals due to the family history of breast carcinoma. BI-RADS Category 1 - Negative Breast Density - Category C - Heterogeneously dense
== END 2020-08-13 00:53 ==
PROVIDERS: PCP Family Medicine; Visit Provider Family Medicine
DX: Z12.31 Encounter for screening mammogram for malignant neoplasm of breast (principal)
CPT/HCPCS: 77063; 77067

== ENCOUNTER 2020-12-09 04:37 | Outpatient (CLI) | payer OTHER, SELFPAY ==
[2020-12-09 17:53] LABS: Potassium 2.8 mmol/L (3.5-5.1)
== END 2020-12-09 04:57 ==
PROVIDERS: PCP Family Medicine; Visit Provider Family Medicine
DX: E87.6 Hypokalemia (principal)
CPT/HCPCS: 36415; 84132

== ENCOUNTER 2020-12-13 02:16 | Outpatient (CLI) | payer OTHER, SELFPAY ==
--- NOTE | 2020-12-13 07:15 | DI.CT_ITS ---
EXAM: CT ABDOMEN PELVIS W CLINICAL HISTORY: INCREASED RECTAL BLOOD,PRESSURE,?ABSCESS,H/O COLOSTOMY AND OVARIAN CA TECHNIQUE: Imaging Protocol: Axial computed tomography images with coronal and sagittal reformatted images were created and reviewed CONTRAST MATERIAL: Intravenous: Omnipaque 350 Contrast volume:100 mL Oral: Yes COMPARISON: CT CT ABDOMEN PELVIS W from 10/31/2019 FINDINGS: ABDOMEN: Lung Bases: Normal where visualized. Liver: Normal density. There are stable tiny hypodensities in the liver which likely reflects cysts. No new hepatic masses. Portal, Superior Mesenteric, and Splenic Veins: Unremarkable. Gallbladder and Biliary Tract: No radiodense calculus or dilation. Pancreas: Normal density, no abnormal calcifications or inflammatory process. Spleen: There is again seen a lucency in the superior anterior aspect of the spleen. This is stable. An accessory spleen is seen at the inferior aspect of the spleen. Adrenals: No masses seen. Kidneys: Normal size, contour and axis. No radiodense stones or obstructive uropathy. No masses seen. Abdominal Aorta: Abdominal portion non-dilated. Bowel: There is a left lower quadrant ostomy. The bowel proximally is unremarkable. No evidence of obstruction or inflammation. Appendix is unremarkable. There is a Claire pouch present. The patch es fluid-filled there may be mild thickening of the wall of the Claire's pouch. No fluid collectio n is seen around the rectal stump to suggest an abscess. Peritoneal Cavity: No ascites, collection or mesenteric inflammatory response. No free air. Lymph Nodes: Within normal limits. Bones: The sclerotic focus in the right iliac bone is unchanged. No new sclerotic or lytic lesions a re seen in the bones. Mild degenerative changes are seen in the lumbar spine. Soft Tissues: Unremarkable. PELVIS: Bladder: Symmetric distention, no gross wall thickening. Reproductive Organs: Status post hysterectomy and oophorectomy. Lymph Nodes: Within normal limits. Bones: Please see above. IMPRESSION: 1. Status post hysterectomy and oophorectomy and sigmoid resection. There is a left lower quadrant c olostomy. 2. There is a Claire's pouch. There is fluid seen with distending the pouch. There is a question of thickening of the wall of the pouch. No abscess is seen in the soft tissues surrounding the pouch . An inflammatory or infectious process involving the Claire's pouch cannot be excluded. RADIATION DOSE DELIVERED: 1,610.32mGy.cm Total DLP DATA REPOSITORY: All CT scans at this facility are submitted to the National Radiology Data Registry (NRDR) Dose Index Registry (DIR) with the [employer] (ACR). RADIATION OPTIMIZATION: All CT scans at this facility use at least one of these dose optimization te chniques: automated exposure control; mA and/or kV adjustment per patient size (includes targeted exa ms where dose is matched to clinical indication); or iterative reconstruction.
[2020-12-13 12:59] LABS: CREATININE 0.8 mg/dL (0.55-1.02)
[2020-12-13] MEDS: Omnipaque 350 MG/ML 100 ML BTL IV (14:14)
[2020-12-13] MEDS: Normal Saline - Diluent 50 ML VIAL IV (14:16)
[2020-12-13] MEDS: Normal Saline Flush 10 ML SYR IVP (14:16)
== END 2020-12-13 02:17 ==
LOC: DI 02:16
PROVIDERS: PCP Family Medicine; Visit Provider Surgery
DX: K62.5 Hemorrhage of anus and rectum (principal); Z93.3 Colostomy status
CPT/HCPCS: 74177; 82565; J3490

== ENCOUNTER 2020-12-27 02:48 | Outpatient (CLI) | payer OTHER, SELFPAY ==
[2020-12-27 08:39] LABS: Potassium 3.4 mmol/L (3.5-5.1)
== END 2020-12-27 02:49 | disposition home or self-care (01) ==
LOC: LBO 02:48
PROVIDERS: PCP Family Medicine; Visit Provider Family Medicine
DX: E87.6 Hypokalemia (principal)
CPT/HCPCS: 36415; 84132

== ENCOUNTER 2021-01-03 02:22 | Outpatient (CLI) | payer OTHER, SELFPAY ==
[2021-01-03 17:34] LABS: Potassium 3.5 mmol/L (3.5-5.1)
== END 2021-01-03 02:23 | disposition home or self-care (01) ==
LOC: LBO 02:23
PROVIDERS: PCP Family Medicine; Visit Provider Family Medicine
DX: E87.6 Hypokalemia (principal)
CPT/HCPCS: 36415; 84132

== ENCOUNTER 2021-02-03 04:33 | Outpatient (CLI) | payer OTHER, SELFPAY ==
[2021-02-03 17:22] LABS: BUN 11 mg/dL (7-18); CREATININE 0.8 mg/dL (0.55-1.02); Calcium 9.4 mg/dL (8.5-10.1); Chloride 98 mmol/L (98-107); Glucose 96 mg/dL (74-106); Potassium 3.2 mmol/L (3.5-5.1); Sodium 138 mmol/L (136-145)
== END 2021-02-03 04:34 | disposition home or self-care (01) ==
LOC: LBO 04:33
PROVIDERS: PCP Family Medicine; Visit Provider Family Medicine
DX: I10 Essential (primary) hypertension (principal)
CPT/HCPCS: 36415; 80048

== ENCOUNTER 2021-08-12 03:36 | Outpatient (CLI) | payer OTHER, SELFPAY ==
[2021-08-12 08:05] LABS: Anion Gap 5.6 mmol/L (3-11); BUN 19 mg/dL (7-18); CO2 31.4 mmol/L (21.0-32.0); CREATININE 0.8 mg/dL (0.55-1.02); Calcium 9.1 mg/dL (8.5-10.1); Calculated LDL 143 mg/dL (<100); Chloride 104 mmol/L (98-107); Cholesterol 219 mg/dL (<200); Glucose 113 mg/dL (74-106); HDL Cholesterol 68 mg/dL (40-60); Potassium 4.5 mmol/L (3.5-5.1); Sodium 141 mmol/L (136-145); Triglyceride 40 mg/dL (<150)
== END 2021-08-12 03:37 | disposition home or self-care (01) ==
LOC: LBO 03:36
PROVIDERS: PCP Family Medicine; Visit Provider Family Medicine
DX: I10 Essential (primary) hypertension (principal); Z00.00 Encounter for general adult medical examination without abnormal findings
CPT/HCPCS: 36415; 80048; 80061

== ENCOUNTER 2021-11-04 01:13 | Outpatient (CLI) | payer OTHER, SELFPAY ==
--- NOTE | 2021-11-04 07:30 | DI.MAMMO_ITS ---
Exam(s) MAMMO SCREENING EXAM: MAMMO SCREENING CLINICAL HISTORY: SCREENING, Z12.31 TECHNIQUE: Mammograms were interpreted according to the usual protocol including computer analysis w [employer] CAD system, tomosynthesis and C-view imaging. COMPARISON: FINDINGS: The breasts are heterogeneously dense with fairly symmetrical distribution of fibroglandular tissue. No dominant mass or clumped microcalcification is identified in either breast. The current examinat ion is compared with previous examinations including August 2020 and there has been no gross interva l change in appearance in comparison with the prior studies. IMPRESSION: No specific evidence of malignancy at this time. Routine screening examinations are suggested at yea rly intervals in this age group according to the ACS ACR guidelines. BI-RADS Category 1 - Negative Breast Density - Category C - Heterogeneously dense
== END 2021-11-04 01:33 ==
PROVIDERS: PCP Family Medicine; Visit Provider Family Medicine
DX: Z12.31 Encounter for screening mammogram for malignant neoplasm of breast (principal)
CPT/HCPCS: 77063; 77067

== ENCOUNTER 2021-12-17 01:42 | Outpatient (CLI) | payer OTHER, SELFPAY ==
[2021-12-19 09:33] LABS: CA 125 9 U/mL (<30)
== END 2021-12-17 01:43 | disposition home or self-care (01) ==
LOC: LBO 01:42
PROVIDERS: PCP Family Medicine; Visit Provider Obstetrics & Gynecology Gynecologic Oncology
DX: C56.9 Malignant neoplasm of unspecified ovary (principal)
CPT/HCPCS: 36415; 86304

== ENCOUNTER 2022-05-08 02:49 | Outpatient (CLI) | payer OTHER, SELFPAY ==
[2022-05-08 07:36] LABS: Abs Immature Grans 0.12 10^3/uL (0.0-0.06); Absolute Basophil Count 0.08 10^3/uL (0.0-0.2); Absolute Eosinophil Count 0.11 10^3/uL (0.0-0.7); Absolute Monocyte Count 0.79 10^3/uL (0.1-0.8); Absolute Neutrophil Count 6.97 10^3/uL (1.2-6.7); Basophils % 0.6; Eosinophils % 0.9; HCT 37.3 % (36.0-46.0); HGB 11.1 g/dL (11.2-15.7); Immature Grans % 0.9; Lymphocytes % 36.5; MCH 24.8 pg (27.0-33.0); MCHC 29.8 % (32.0-36.0); MCV 83 fL (80-95); MPV 8.6 fL (8.0-11.0); Monocytes % 6.2; Neutrophils % 54.9; Platelet Count 334 10^3/uL (130-400); RBC 4.48 10^6/uL (3.93-5.22); RDW 13.9 % (11.7-14.6); RDW-SD 42.7 fL
[2022-05-08 07:37] LABS: Absolute Lymphocyte Count 4.64 10^3/uL (1.2-3.4)
[2022-05-08 09:01] LABS: ALT 21 U/L (14-59); AST 12 U/L (15-37); Albumin 3.4 g/dL (3.4-5.0); Alkaline Phosphatase 69 U/L (46-116); Bilirubin, Direct 0.1 mg/dL (0.0-0.2); Bilirubin, Total 0.3 mg/dL (0.2-1.0); C-Reactive Protein 0.19 mg/dL (0.0-0.3); Total Protein 6.7 g/dL (6.4-8.2)
[2022-05-12 18:44] LABS: Infliximab 31 mcg/mL (<=5.0)
== END 2022-05-08 02:50 | disposition home or self-care (01) ==
PROVIDERS: PCP Family Medicine; Visit Provider Internal Medicine Gastroenterology
DX: K51.011 Ulcerative (chronic) pancolitis with rectal bleeding (principal)
CPT/HCPCS: 36415; 80076; 82397; 85025; 86140

== ENCOUNTER 2022-05-08 18:26 | Outpatient (REF) | payer OTHER, SELFPAY ==
[2022-05-12 16:01] LABS: Calprotectin 98.4 mcg/g
== END 2022-05-08 18:27 | disposition home or self-care (01) ==
LOC: LBN 18:26
PROVIDERS: PCP Family Medicine; Visit Provider Internal Medicine Gastroenterology
DX: K51.011 Ulcerative (chronic) pancolitis with rectal bleeding (principal)
CPT/HCPCS: 83993

== ENCOUNTER 2022-09-09 03:23 | Outpatient (CLI) | payer OTHER, SELFPAY ==
[2022-09-09 08:18] LABS: Anion Gap 5.6 mmol/L (3-11); BUN 19 mg/dL (7-18); CO2 30.4 mmol/L (21.0-32.0); CREATININE 0.9 mg/dL (0.55-1.02); Calcium 9.2 mg/dL (8.5-10.1); Calculated LDL 161 mg/dL (<100); Chloride 104 mmol/L (98-107); Cholesterol 250 mg/dL (<200); Estimated GFR 78.86 (mL/min/1.73m2); Glucose 106 mg/dL (74-106); HDL Cholesterol 77 mg/dL (40-60); Potassium 4.2 mmol/L (3.5-5.1); Sodium 140 mmol/L (136-145); Triglyceride 64 mg/dL (<150)
== END 2022-09-09 03:24 | disposition home or self-care (01) ==
LOC: LBO 03:24
PROVIDERS: PCP Family Medicine; Visit Provider Family Medicine
DX: Z00.00 Encounter for general adult medical examination without abnormal findings (principal); I10 Essential (primary) hypertension
CPT/HCPCS: 36415; 80048; 80061

== ENCOUNTER 2023-01-11 00:50 | Outpatient (CLI) | payer OTHER, SELFPAY ==
--- NOTE | 2023-01-11 07:45 | DI.MAMMO_ITS ---
Exam(s) MAMMO SCREENING EXAM: MAMMO SCREENING CLINICAL HISTORY: SCREENING, Z12.31 TECHNIQUE: Mammograms were interpreted according to the usual protocol including computer analysis w [employer] CAD system, tomosynthesis and C-view imaging. COMPARISON: 2015 through 2020 FINDINGS: The breasts are composed of scattered fibroglandular densities, Breast Density category B. No suspicious masses or suspicious microcalcifications are seen. No skin thickening or abnormal axillary lymph nodes are seen. There has been no significant change from prior exams. IMPRESSION: BI-RADS Category 1, Negative mammogram Yearly screening mammography is recommended. Breast Density - Category B, scattered fibroglandular densities. A negative radiographic report should not delay biopsy if a dominant or clinically suspicious mass is present. Up to ten percent of cancers are not identified on mammography. A negative report may reinforce clinical impression. Adenosis and dense breasts may obscure an underlying neoplasm. False positive reports average 6 to 10%. Patient will receive a letter notifying them of these results.
== END 2023-01-11 01:10 ==
PROVIDERS: PCP Family Medicine; Visit Provider Family Medicine
DX: Z12.31 Encounter for screening mammogram for malignant neoplasm of breast (principal)
CPT/HCPCS: 77063; 77067

== ENCOUNTER 2023-01-13 02:47 | Outpatient (CLI) | payer OTHER, SELFPAY ==
[2023-01-14 09:11] LABS: HBs Antibody, Quant 73.5 mIU/mL (See Note); Hepatitis B Surface Ab Positive (See Note)
[2023-01-14 09:16] LABS: Hepatitis B Surface Ag Negative (Negative)
[2023-01-14 09:44] LABS: IgA 374 mg/dL (85-499); IgG 1174 mg/dL (610-1616)
[2023-01-14 09:57] LABS: Hepatitis C Ab w Rflx HCV PCR Negative (Negative)
[2023-01-14 10:05] LABS: Hep B Core Antibody Negative (Negative)
[2023-01-14 10:09] LABS: Hep A Total Ab w Rflx IgM Negative (Negative)
[2023-01-14 23:04] LABS: Tissue Transglutaminase Ab IgA <1.2 U/mL
[2023-01-15 12:19] LABS: Liver/Kidney Microsome Type 1 <5.0 U
[2023-01-15 12:25] LABS: Smooth Muscle Ab Screen Negative (Negative)
[2023-01-15 21:09] LABS: Infliximab 10 mcg/mL (<=5.0)
== END 2023-01-13 02:48 | disposition home or self-care (01) ==
LOC: LBO 02:47
PROVIDERS: PCP Family Medicine; Visit Provider Internal Medicine Gastroenterology
DX: K51.011 Ulcerative (chronic) pancolitis with rectal bleeding (principal)
CPT/HCPCS: 36415; 82397; 82784; 86704; 86706; 86709; 86803; 87340; 83516; 86255

== ENCOUNTER 2023-02-15 12:38 | Emergency (ER) | payer OTHER, SELFPAY ==
[2023-02-15 12:45] VITALS: BP 145/90; PULSE 68; RESP 16; TEMP 36.9; O2SAT 100
--- NOTE | 2023-02-15 13:21 | W.ED.GENAD ---
Discharge Plan Disposition Patient Disposition: Home Condition: Good Discharge Details Clinical Impression: Medication reaction Primary Care Provider: Elizabeth Romero ED Provider: Rancho Morris Home Meds and New Rx's Prescriptions: Continued letrozole 2.5 mg tablet 2.5 mg PO DAILY potassium chloride 20 mEq tablet extended release 20 meq PO DAILY Patient Comments: no longer takes 02/15/23 CT chlorthalidone 25 mg tablet 25 mg PO DAILY Patient Comments: No longer takes 02/15/23 CT metronidazole [Flagyl] 500 mg tablet 500 mg PO TID Qty: 30 0RF Patient Comments: No longer takes 02/15/23 CT Rx Instructions: One tab 3 times a day. acetaminophen 325 mg Tablet 650 mg PO Q6H PRN PRN ibuprofen 200 mg Tablet 600 mg PO Q6H PRN multivitamin Capsule 1 cap PO DAILY calcium carbonate-vit D3-min 600 mg calcium- 200 unit Tablet 1 tab PO DAILY Patient Comments: No longer takes 02/15/23 CT Discharge Instructions Instructions: Anaphylaxis (ED) Additional Instructions: At this time thankfully you show no current clinical evidence of anaphylaxis or significant allergic reaction. If you do develop any slight itchiness do not hesitate to take an additional Benadryl at home. Please monitor your symptoms closely, rest, and drink plenty of fluids today. Please discuss with your primary care provider and your clinical trial educator about further potential injections or switching to a new medication. If you notice any worsening of your symptoms, or any new symptoms such as vomiting, diarrhea, fever, chills, shortness of breath, chest pain, numbness, weakness, or fainting , please return immediately to the emergency department for reevaluation. Please follow up with your primary care provider as soon as possible for reassessment and reevaluation. As always, it was a pleasure participating in your medical care today. Referrals: Nishant Ray [ [facility] STAFF PHYSICIAN] - Elizabeth Romero [Primary Care Provider] - Discharge Data Discharge Date/Time-TO BE ENTERED AT DEPARTURE: 02/15/23 13:32 Medical Decision Making 47-year-old female with a past medical history of GERD, hypertension, previous ovarian cancer, bilateral salpingo-oophorectomy, and history of autoimmune colitis for which she takes inalecpra and gets infusions every month, presents today for reaction to the infusion. She is seen by Dr. Ray at [facility]. She has been taking the infusion for months, she did get COVID in November, and then in her subsequent infusion she noticed a very slight amount of shortness of breath which was new for her. The following month which was today she had her next infusion, and at that point during the infusion today she had an episode of shortness of breath, redness and flushing. Started immediately once the infusion began. She had been pretreated with loratadine already. Once her symptoms began she stopped taking the infusion immediately and was given Benadryl. Her symptoms almost immediately resolved. She came to the ER for further assessment. Currently she feels well and has no complaints whatsoever. She developed no rash, no syncope, no vomiting or diarrhea. No history of anaphylaxis or significant allergic reaction otherwise. No other complaints at this time. No other modifying factors. Physical exam demonstrates a well-appearing female, no abdominal pain, no wheezes, no rash or hives. No angioedema. No evidence of anaphylaxis whatsoever. For that matter the patient is completely asymptomatic. Injection site on the left AC demonstrates no evidence of redness swelling or other abnormality. Patient otherwise feels notably well. Suspect this was a mild reaction to her infusion at. No evidence of an anaphylactic reaction requiring steroids or epinephrine. I do wonder if there is a component of a autoimmune reactivity component secondary to her COVID infection in between her infusions. Regardless patient looks notably well at this time and is stable for discharge. Discussed red flags for which to return. No other emergent interventions indicated at this time clinically. HPI General Date/Time Provider Initiated Documentation: 02/15/23 13:21. HPI Narrative: 47-year-old female with a past medical history of GERD, hypertension, previous ovarian cancer, bilateral salpingo-oophorectomy, and history of autoimmune colitis for which she takes inalecpra and gets infusions every month, presents today for reaction to the infusion. She is seen by Dr. Ray at [facility]. She has been taking the infusion for months, she did get COVID in November, and then in her subsequent infusion she noticed a very slight amount of shortness of breath which was new for her. The following month which was today she had her next infusion, and at that point during the infusion today she had an episode of shortness of breath, redness and flushing. Started immediately once the infusion began. She had been pretreated with loratadine already. Once her symptoms began she stopped taking the infusion immediately and was given Benadryl. Her symptoms almost immediately resolved. She came to the ER for further assessment. Currently she feels well and has no complaints whatsoever. She developed no rash, no syncope, no vomiting or diarrhea. No history of anaphylaxis or significant allergic reaction otherwise. No other complaints at this time. No other modifying factors. Related Data Home Medications Medication Instructions Recorded Confirmed acetaminophen 325 mg tablet 650 mg PO Q6H PRN PRN 12/15/19 02/15/23 calcium carb-vit D3-minerals 600 1 tab PO DAILY 12/15/19 06/27/20 mg calcium-200 unit tablet ibuprofen 200 mg tablet 600 mg PO Q6H PRN 12/15/19 02/15/23 multivitamin 1 cap PO DAILY 12/15/19 02/15/23 letrozole 2.5 mg tablet 2.5 mg PO DAILY 06/27/20 02/15/23 chlorthalidone 25 mg tablet 25 mg PO DAILY 11/26/20 potassium chloride 20 mEq 20 meq PO DAILY 11/26/20 tablet,extended release metronidazole 500 mg tablet 500 mg PO TID #30 tabs 12/23/20 (Flagyl) Previous Rx's Medication Instructions Recorded metronidazole 500 mg tablet 500 mg PO TID #30 tabs 12/23/20 (Flagyl) Allergies Allergy/AdvReac Type Severity Reaction Status Date / Time No Known Allergies Allergy Unverified 02/15/23 12:49 General Stated Complaint: Allergic HYACINTH: 3 Review of Systems All systems reviewed & are unremarkable except as noted in HPI and below PFSH All Active Problems Medication reaction (Acute) BRBPR (bright red blood per rectum) (Acute) Medical History GERD (gastroesophageal reflux disease) Hypertension Hypokalemia Ovarian cancer Rosacea Surgical History History of total abdominal hysterectomy and bilateral salpingo-oophorectomy 11/21/2019- [facility], omentectomy, rectosigmoidectomy with end colostomy and Claire's pouch, cytoreduction with resection of pelvic masses, left ureterolysis, resection of tumor on bladder peritoneum, argon beam of tumor on posterior vagina and paracolic gutter, temporary bilater ureteral stent placement (removed upon completion of case) Social History Smoking/Tobacco Use Status: Never Smoking risk assessment performed?: Yes Alcohol Intake: current Alcohol Intake frequency: holidays/special occasions only Drug use: Never Substance use type: does not use Current gender identity: female Do you feel safe at home: Yes Do you feel safe in your relationship?: Yes Exam Narrative Exam Narrative: 1.Const: Well-nourished, Well-developed, appearing stated age 2.Eyes: PERRL, no conjunctival injection, and symmetrical lids. 3.ENT: Atraumatic external nose and ears. Moist MM. Neck: Symmetric, trachea midline, No thyromegaly. No angioedema or swelling in the oropharynx. 4.CVS: +S1/S2, No murmurs or gallops. Peripheral pulses 2+ and equal in all extremities. Brisk capillary refill in all extremities. 5.RESP: Unlabored respiratory effort. Clear to auscultation bilaterally. No wheezes rales or rhonchi 6.GI: Soft, Nontender/Nondistended, No hepatosplenomegaly. No guarding or rebound. 7.MSK: Normocephalic/Atraumatic, Extremities w/o deformity or ttp No cyanosis or clubbing, Normal movement of all extremities 8.Skin: Warm, Dry. No rashes or lesions. No rash, no hives. 9.Neuro: wind commissioning technician II-XII grossly intact. Sensation grossly intact, no focal neurologic deficits. 10.Psych: (AAO) x3. Appropriate mood and affect Course Vital Signs Vital signs: Vital Signs Temperature 36.9 C 02/15/23 12:45 Pulse 68 02/15/23 12:45 Respiratory Rate 16 02/15/23 12:45 Blood Pressure 145/90 H 02/15/23 12:45 Pulse Oximetry 100 02/15/23 12:45 Temperature 36.9 C 02/15/23 12:45 Temperature Source Oral 02/15/23 12:45 Pulse 68 02/15/23 12:45 Respiratory Rate 16 02/15/23 12:45 Respiratory Effort Non-Labored, Short of Breath 02/15/23 12:48 Respiratory Pattern Normal 02/15/23 12:48 Blood Pressure 145/90 H 02/15/23 12:45 Pulse Oximetry 100 02/15/23 12:45 Oxygen Delivery Method Room Air 02/15/23 12:45 Oxygen Flow Rate 0 02/15/23 12:45 Pain Level 0 02/15/23 12:45
== END 2023-02-15 13:32 | disposition home or self-care (01) ==
PROVIDERS: Emergency Provider Student in an Organized Health Care Education/Training Program; PCP Family Medicine
DX: T50.905A Adverse effect of unspecified drugs, medicaments and biological substances, initial encounter (principal)
CPT/HCPCS: 99281; 99282

== ENCOUNTER 2023-03-19 00:59 | Outpatient (RCR) | payer OTHER, SELFPAY ==
[2023-03-19 10:00] VITALS: BP 128/84; PULSE 76; RESP 17; TEMP 36.6; O2SAT 98
[2023-03-19] MEDS: Normal Saline Flush 10 ML SYR IVP (10:08)
[2023-03-19 11:18] VITALS: BP 126/83; PULSE 60; RESP 17; TEMP 36.8; O2SAT 100
== END 2023-04-07 23:59 | disposition home or self-care (01) ==
LOC: INF 00:59
PROVIDERS: PCP Family Medicine; Visit Provider Nurse Practitioner Family
DX: K51.011 Ulcerative (chronic) pancolitis with rectal bleeding (principal)
CPT/HCPCS: 96365; J3358

== ENCOUNTER 2023-04-29 10:59 | Outpatient (CLI) | payer OTHER, SELFPAY ==
[2023-04-29 16:47] LABS: Abs Immature Grans 0.04 10^3/uL (0.0-0.06); Absolute Basophil Count 0.11 10^3/uL (0.0-0.2); Absolute Eosinophil Count 0.36 10^3/uL (0.0-0.7); Absolute Lymphocyte Count 3.41 10^3/uL (1.2-3.4); Absolute Monocyte Count 0.65 10^3/uL (0.1-0.8); Absolute Neutrophil Count 4.38 10^3/uL (1.2-6.7); Basophils % 1.2; HGB 13.6 g/dL (11.2-15.7); Immature Grans % 0.4; Lymphocytes % 38.1; MCH 26.8 pg (27.0-33.0); MCHC 32.4 % (32.0-36.0); MCV 83 fL (80-95); MPV 8.6 fL (8.0-11.0); Monocytes % 7.3; Platelet Count 380 10^3/uL (130-400); RBC 5.07 10^6/uL (3.93-5.22); RDW 13.2 % (11.7-14.6); RDW-SD 39.3 fL; WBC 8.95 10^3/uL (4.4-10.8)
[2023-04-29 17:25] LABS: ALT 30 U/L (14-59); AST 21 U/L (15-37); Albumin 3.8 g/dL (3.4-5.0); Alkaline Phosphatase 99 U/L (46-116); Bilirubin, Direct 0.1 mg/dL (0.0-0.2); Bilirubin, Total 0.4 mg/dL (0.2-1.0); C-Reactive Protein 0.57 mg/dL (0.0-0.3); Total Protein 7.8 g/dL (6.4-8.2)
== END 2023-04-29 11:00 | disposition home or self-care (01) ==
LOC: LBO 10:59
PROVIDERS: PCP Family Medicine; Visit Provider Student in an Organized Health Care Education/Training Program
DX: K51.011 Ulcerative (chronic) pancolitis with rectal bleeding (principal)
CPT/HCPCS: 36415; 80076; 85025; 86140

== ENCOUNTER 2023-06-08 12:38 | Outpatient (CLI) | payer OTHER, SELFPAY ==
[2023-06-08 16:01] LABS: Abs Immature Grans 0.02 10^3/uL (0.0-0.06); Absolute Basophil Count 0.07 10^3/uL (0.0-0.2); Absolute Eosinophil Count 0.33 10^3/uL (0.0-0.7); Absolute Monocyte Count 0.71 10^3/uL (0.1-0.8); Basophils % 0.9; HCT 39.6 % (36.0-46.0); Immature Grans % 0.2; Lymphocytes % 37.7; MCH 26.7 pg (27.0-33.0); MCHC 32.8 % (32.0-36.0); MCV 82 fL (80-95); MPV 8.4 fL (8.0-11.0); Monocytes % 8.6; Neutrophils % 48.6; Platelet Count 323 10^3/uL (130-400); RBC 4.86 10^6/uL (3.93-5.22); RDW-SD 38.5 fL; WBC 8.23 10^3/uL (4.4-10.8)
[2023-06-08 16:29] LABS: ALT 24 U/L (14-59); AST 20 U/L (15-37); Albumin 3.8 g/dL (3.4-5.0); Alkaline Phosphatase 97 U/L (46-116); Bilirubin, Direct 0.1 mg/dL (0.0-0.2); Bilirubin, Total 0.4 mg/dL (0.2-1.0); C-Reactive Protein 0.74 mg/dL (0.0-0.3); Total Protein 7.5 g/dL (6.4-8.2)
== END 2023-06-08 12:39 | disposition home or self-care (01) ==
LOC: LBO 12:38
PROVIDERS: PCP Family Medicine; Visit Provider Student in an Organized Health Care Education/Training Program
DX: K51.011 Ulcerative (chronic) pancolitis with rectal bleeding (principal)
CPT/HCPCS: 36415; 80076; 85025; 86140

== ENCOUNTER 2023-07-21 03:32 | Outpatient (CLI) | payer OTHER, SELFPAY ==
[2023-07-21 17:13] LABS: Abs Immature Grans 0.03 10^3/uL (0.0-0.06); Absolute Basophil Count 0.11 10^3/uL (0.0-0.2); Absolute Eosinophil Count 0.24 10^3/uL (0.0-0.7); Absolute Lymphocyte Count 3.57 10^3/uL (1.2-3.4); Absolute Monocyte Count 0.67 10^3/uL (0.1-0.8); Absolute Neutrophil Count 4.69 10^3/uL (1.2-6.7); Basophils % 1.2; Eosinophils % 2.6; HCT 42.1 % (36.0-46.0); HGB 13.7 g/dL (11.2-15.7); Immature Grans % 0.3; Lymphocytes % 38.3; MCH 26.9 pg (27.0-33.0); MCHC 32.5 % (32.0-36.0); MCV 83 fL (80-95); MPV 8.4 fL (8.0-11.0); Monocytes % 7.2; Neutrophils % 50.4; Platelet Count 378 10^3/uL (130-400); RBC 5.09 10^6/uL (3.93-5.22); RDW-SD 39.1 fL; WBC 9.31 10^3/uL (4.4-10.8)
[2023-07-21 17:39] LABS: ALT 23 U/L (14-59); AST 20 U/L (15-37); Albumin 3.9 g/dL (3.4-5.0); Alkaline Phosphatase 108 U/L (46-116); Bilirubin, Direct 0.1 mg/dL (0.0-0.2); Bilirubin, Total 0.3 mg/dL (0.2-1.0); C-Reactive Protein 0.66 mg/dL (0.0-0.3); Total Protein 7.5 g/dL (6.4-8.2)
== END 2023-07-21 03:33 | disposition home or self-care (01) ==
PROVIDERS: PCP Family Medicine; Visit Provider Student in an Organized Health Care Education/Training Program
DX: K51.011 Ulcerative (chronic) pancolitis with rectal bleeding (principal)
CPT/HCPCS: 36415; 80076; 85025; 86140

== ENCOUNTER 2023-08-06 03:13 | Outpatient (CLI) | payer OTHER, SELFPAY ==
[2023-08-06 14:20] LABS: Anion Gap 8.1 mmol/L (3-11); BUN 15 mg/dL (7-18); CO2 27.9 mmol/L (21.0-32.0); CREATININE 0.9 mg/dL (0.55-1.02); Calcium 9.6 mg/dL (8.5-10.1); Chloride 101 mmol/L (98-107); Estimated GFR 78.37 (mL/min/1.73m2); Glucose 110 mg/dL (74-106); LDL CHOLESTEROL 132 mg/dL (<100); Potassium 3.7 mmol/L (3.5-5.1); Sodium 137 mmol/L (136-145)
== END 2023-08-06 03:14 | disposition home or self-care (01) ==
LOC: LBO 03:13
PROVIDERS: PCP Family Medicine; Visit Provider Family Medicine
DX: Z00.00 Encounter for general adult medical examination without abnormal findings (principal); I10 Essential (primary) hypertension; Z86.32 Personal history of gestational diabetes
CPT/HCPCS: 36415; 80048; 83721; 83036

== ENCOUNTER 2023-08-27 02:10 | Outpatient (CLI) | payer OTHER, SELFPAY ==
[2023-08-27 08:06] LABS: Abs Immature Grans 0.02 10^3/uL (0.0-0.06); Absolute Basophil Count 0.08 10^3/uL (0.0-0.2); Absolute Eosinophil Count 0.18 10^3/uL (0.0-0.7); Absolute Lymphocyte Count 2.39 10^3/uL (1.2-3.4); Absolute Monocyte Count 0.46 10^3/uL (0.1-0.8); Absolute Neutrophil Count 4.29 10^3/uL (1.2-6.7); Basophils % 1.1; Eosinophils % 2.4; HGB 12.7 g/dL (11.2-15.7); Immature Grans % 0.3; Lymphocytes % 32.2; MCH 26.8 pg (27.0-33.0); MCHC 32.6 % (32.0-36.0); MCV 82 fL (80-95); MPV 8.3 fL (8.0-11.0); Monocytes % 6.2; Neutrophils % 57.8; Platelet Count 302 10^3/uL (130-400); RBC 4.74 10^6/uL (3.93-5.22); RDW-SD 39.1 fL; WBC 7.42 10^3/uL (4.4-10.8)
[2023-08-27 09:09] LABS: ALT 19 U/L (14-59); AST 15 U/L (15-37); Albumin 3.6 g/dL (3.4-5.0); Alkaline Phosphatase 91 U/L (46-116); Bilirubin, Direct 0.1 mg/dL (0.0-0.2); Bilirubin, Total 0.3 mg/dL (0.2-1.0); C-Reactive Protein 0.69 mg/dL (0.0-0.3); Total Protein 7.4 g/dL (6.4-8.2)
[2023-09-01 15:16] LABS: Ustekinumab Ab <10 AU/mL (<10); Ustekinumab QN 1.3 mcg/mL
== END 2023-08-27 02:11 | disposition home or self-care (01) ==
PROVIDERS: PCP Family Medicine; Visit Provider Nurse Practitioner Adult Health
DX: K51.011 Ulcerative (chronic) pancolitis with rectal bleeding (principal)
CPT/HCPCS: 36415; 80076; 80299; 83520; 85025; 86140

== ENCOUNTER 2023-08-27 15:44 | Outpatient (REF) | payer OTHER, SELFPAY ==
[2023-08-31 14:32] LABS: Calprotectin 52.7 mcg/g
== END 2023-08-27 15:45 | disposition home or self-care (01) ==
LOC: LBN 15:44
PROVIDERS: PCP Family Medicine; Visit Provider Nurse Practitioner Adult Health
DX: K50.011 Crohn's disease of small intestine with rectal bleeding (principal)
CPT/HCPCS: 83993

== ENCOUNTER 2024-01-05 03:29 | Outpatient (CLI) | payer OTHER, SELFPAY ==
[2024-01-05 08:04] LABS: Abs Immature Grans 0.02 10^3/uL (0.0-0.06); Absolute Basophil Count 0.09 10^3/uL (0.0-0.2); Absolute Eosinophil Count 0.16 10^3/uL (0.0-0.7); Absolute Lymphocyte Count 2.34 10^3/uL (1.2-3.4); Absolute Monocyte Count 0.57 10^3/uL (0.1-0.8); Absolute Neutrophil Count 3.91 10^3/uL (1.2-6.7); Basophils % 1.3; Eosinophils % 2.3; HCT 38.8 % (36.0-46.0); HGB 12.7 g/dL (11.2-15.7); Immature Grans % 0.3; MCH 27.1 pg (27.0-33.0); MCHC 32.7 % (32.0-36.0); MCV 83 fL (80-95); MPV 8.2 fL (8.0-11.0); Neutrophils % 55.1; Platelet Count 341 10^3/uL (130-400); RBC 4.68 10^6/uL (3.93-5.22); RDW 12.9 % (11.7-14.6); RDW-SD 38.6 fL; WBC 7.09 10^3/uL (4.4-10.8)
[2024-01-05 09:17] LABS: Hemoglobin A1C 5.9 % (<5.7)
[2024-01-05 09:51] LABS: ALT 20 U/L (14-59); AST 17 U/L (15-37); Albumin 3.4 g/dL (3.4-5.0); Alkaline Phosphatase 87 U/L (46-116); Anion Gap 8.5 mmol/L (3-11); BUN 17 mg/dL (7-18); Bilirubin, Total 0.4 mg/dL (0.2-1.0); C-Reactive Protein 0.58 mg/dL (<or=0.5); CO2 28.5 mmol/L (21.0-32.0); CREATININE 0.9 mg/dL (0.55-1.02); Calcium 9.1 mg/dL (8.5-10.1); Chloride 103 mmol/L (98-107); Estimated GFR 78.37 (mL/min/1.73m2); Glucose 101 mg/dL (74-106); Potassium 4.2 mmol/L (3.5-5.1); Sodium 140 mmol/L (136-145)
[2024-01-05 10:06] LABS: ALT 21 U/L (14-59); AST 17 U/L (15-37); Albumin 3.4 g/dL (3.4-5.0); Alkaline Phosphatase 86 U/L (46-116); Bilirubin, Direct 0.1 mg/dL (0.0-0.2); Bilirubin, Total 0.4 mg/dL (0.2-1.0); Total Protein 7.1 g/dL (6.4-8.2)
[2024-01-05 18:58] LABS: Hepatitis B Surface Ag Negative (Negative)
[2024-01-06 12:23] LABS: TB Interpretation (See Note) (Negative)
== END 2024-01-05 03:30 | disposition home or self-care (01) ==
LOC: LBO 03:29
PROVIDERS: PCP Family Medicine; Visit Provider Student in an Organized Health Care Education/Training Program
DX: K51.011 Ulcerative (chronic) pancolitis with rectal bleeding (principal)
CPT/HCPCS: 80053; 80076; 87340; 83036; 85025; 86140; 86480

== ENCOUNTER 2024-01-12 08:52 | Outpatient (REF) | payer OTHER, SELFPAY ==
[2024-01-14 20:33] LABS: Calprotectin <50.0 mcg/g
== END 2024-01-12 08:53 | disposition home or self-care (01) ==
LOC: LBN 08:52
PROVIDERS: PCP Family Medicine; Referring Provider Family Medicine; Visit Provider Family Medicine
DX: K51.90 Ulcerative colitis, unspecified, without complications (principal); Z79.899 Other long term (current) drug therapy
CPT/HCPCS: 83993

== ENCOUNTER → 2024-01-20 01:22 | Outpatient (CLI) | payer OTHER, SELFPAY ==
--- NOTE | 2024-01-20 | DI.MAMMO_ITS ---
Exam(s) MAMMO SCREENING EXAM: MAMMO SCREENING CLINICAL HISTORY: Z12.31 screening mammogram for malig neop , breast. TECHNIQUE: Bilateral full field digital CC and MLO mammographic images were obtained with 3D tomosyn thesis and utilizing computer aided detection (CAD). COMPARISON: Prior mammograms were reviewed. FINDINGS: There has been no significant change in the appearance and distribution of the fibroglandular tissue. There are no CAD designations. There are no new spiculated masses nor malignant appearing microcalcification groups. There is no significant architectural distortion nor skin thickening-retraction. IMPRESSION: No radiographic evidence of malignancy. BI-RADS Category 1 - Negative Breast Density - Category B - Scattered areas of fibroglandular density Breast density Category C or D implies that the patient has dense breast tissue. Dense breast tissue can make it harder to find cancer on a mammogram. Dense breast tissue is also associated with an incr eased risk of breast cancer. This information about the result of the mammogram report was provided to the patient to raise their awareness. Use this report when you speak with the patient about their risks for breast cancer, which includes their family history. At that time, you may recommend additional screening tests (Ultrasoun d or MRI) as these tests may add significant information. A negative radiographic report should not delay biopsy if a dominant or clinically suspicious mass is present. Up to ten percent of cancers are not identified on mammography. A negative report may reinforce clinical impression. Adenosis and dense breasts may obscure an underlying neoplasm. False positive reports average 6 to 10%. Patient will receive a letter notifying them of these results.
== END ==
PROVIDERS: PCP Family Medicine; Visit Provider Family Medicine
DX: Z12.31 Encounter for screening mammogram for malignant neoplasm of breast (principal)
CPT/HCPCS: 77063; 77067

== ENCOUNTER 2024-04-24 05:53 | Outpatient (CLI) | payer OTHER, SELFPAY ==
[2024-04-24 16:24] LABS: Abs Immature Grans 0.04 10^3/uL (0.0-0.06); Absolute Basophil Count 0.08 10^3/uL (0.0-0.2); Absolute Lymphocyte Count 3.63 10^3/uL (1.2-3.4); Absolute Monocyte Count 0.69 10^3/uL (0.1-0.8); Absolute Neutrophil Count 4.81 10^3/uL (1.2-6.7); Basophils % 0.8 %; Eosinophils % 3.1 %; HCT 41.2 % (36.0-46.0); HGB 13.1 g/dL (11.2-15.7); Immature Grans % 0.4 %; MCHC 31.8 % (32.0-36.0); MCV 85 fL (80-95); MPV 8.6 fL (8.0-11.0); Monocytes % 7.2 %; Neutrophils % 50.5 %; Platelet Count 366 10^3/uL (130-400); RBC 4.85 10^6/uL (3.93-5.22); RDW 12.9 % (11.7-14.6); RDW-SD 39.8 fL; WBC 9.55 10^3/uL (4.4-10.8)
[2024-04-24 23:07] LABS: ALT 26 U/L (14-59); AST 19 U/L (15-37); Alkaline Phosphatase 93 U/L (46-116); Anion Gap 10.6 mmol/L (3-11); BUN 15 mg/dL (7-18); Bilirubin, Total 0.3 mg/dL (0.2-1.0); C-Reactive Protein 1.07 mg/dL (<or=0.5); CO2 27.4 mmol/L (21.0-32.0); CREATININE 0.9 mg/dL (0.55-1.02); Calcium 9.1 mg/dL (8.5-10.1); Chloride 101 mmol/L (98-107); Estimated GFR 78.37 (mL/min/1.73m2); Glucose 131 mg/dL (74-106); Potassium 4.1 mmol/L (3.5-5.1); Sodium 139 mmol/L (136-145); Total Protein 7.1 g/dL (6.4-8.2)
[2024-04-26 13:54] LABS: TB Interpretation Negative (Negative)
[2024-04-28 15:15] LABS: Ustekinumab Ab <10 AU/mL (<10)
== END 2024-04-24 05:54 | disposition home or self-care (01) ==
LOC: LBO 05:53
PROVIDERS: PCP Family Medicine; Visit Provider Internal Medicine Gastroenterology
DX: K51.011 Ulcerative (chronic) pancolitis with rectal bleeding (principal)
CPT/HCPCS: 36415; 80053; 80299; 83520; 85025; 86140; 86480

== ENCOUNTER 2024-11-07 15:19 | Outpatient (CLI) | payer OTHER, SELFPAY ==
[2024-11-07 15:27] LABS: Abs Immature Grans 0.03 10^3/uL (0.0-0.06); Absolute Basophil Count 0.07 10^3/uL (0.0-0.2); Absolute Eosinophil Count 0.22 10^3/uL (0.0-0.7); Absolute Lymphocyte Count 3.25 10^3/uL (1.2-3.4); Absolute Monocyte Count 0.51 10^3/uL (0.1-0.8); Basophils % 0.8 %; Eosinophils % 2.6 %; HCT 41.7 % (36.0-46.0); HGB 13.4 g/dL (11.2-15.7); Immature Grans % 0.3 %; Lymphocytes % 37.9 %; MCH 27.1 pg (27.0-33.0); MCHC 32.1 % (32.0-36.0); MCV 84 fL (80-95); MPV 8.2 fL (8.0-11.0); Monocytes % 5.9 %; Neutrophils % 52.5 %; Platelet Count 317 10^3/uL (130-400); RBC 4.95 10^6/uL (3.93-5.22); RDW-SD 39.8 fL; WBC 8.58 10^3/uL (4.4-10.8)
[2024-11-07 16:02] LABS: Hemoglobin A1C 6.1 % (<5.7)
[2024-11-07 16:17] LABS: ALT 19 U/L (14-59); AST 18 U/L (15-37); Albumin 3.9 g/dL (3.4-5.0); Alkaline Phosphatase 97 U/L (46-116); Anion Gap 9.3 mmol/L (3-11); BUN 15 mg/dL (7-18); Bilirubin, Total 0.34 mg/dL (0.2-1.0); C-Reactive Protein 0.86 mg/dL (<or=0.5); CO2 28.7 mmol/L (21.0-32.0); CREATININE 0.8 mg/dL (0.55-1.02); Calcium 9.5 mg/dL (8.5-10.1); Calculated LDL 184 mg/dL (<100); Chloride 103 mmol/L (98-107); Cholesterol 270 mg/dL (<200); Estimated GFR 89.71 (mL/min/1.73m2); Glucose 91 mg/dL (74-106); HDL Cholesterol 76 mg/dL (40-60); Potassium 4.2 mmol/L (3.5-5.1); Sodium 141 mmol/L (136-145); Total Protein 7.4 g/dL (6.4-8.2); Triglyceride 53 mg/dL (<150)
[2024-11-09 18:38] LABS: Hepatitis B Surface Ag Negative (Negative)
[2024-11-10 10:28] LABS: TB Interpretation Negative (Negative)
== END 2024-11-07 15:20 | disposition home or self-care (01) ==
LOC: LBO 15:20
PROVIDERS: PCP Family Medicine; Visit Provider Family Medicine
DX: K51.90 Ulcerative colitis, unspecified, without complications (principal); Z79.899 Other long term (current) drug therapy; Z00.00 Encounter for general adult medical examination without abnormal findings; R73.09 Other abnormal glucose
CPT/HCPCS: 36415; 80053; 80061; 87340; 83036; 85025; 86140; 86480

== ENCOUNTER 2025-02-05 00:22 | Outpatient (CLI) | payer OTHER, SELFPAY ==
--- NOTE | 2025-02-05 | DI.MAMMO_ITS ---
Exam(s) MAMMO SCREENING EXAM: MAMMO SCREENING CLINICAL HISTORY: Screening, Z12.31 TECHNIQUE: Bilateral full field digital CC and MLO mammographic images were obtained with 3D tomosyn thesis and utilizing computer aided detection (CAD). COMPARISON: Available for comparison. FINDINGS: Masses/Architectural Distortion: None seen. Microcalcifications: No suspicious pleomorphic-type are seen. Skin Thickening/Nipple Retraction: None. IMPRESSION: 1. No significant interval change with no specific features of malignancy noted. 2. Unless there is more urgent need, screening mammography is recommended, as per [place] [employer] guidelines. BI-RADS Category 1 - Negative Breast Density - Category B - Scattered areas of fibroglandular density Breast density category C or D implies that the patient has dense breast tissue. Dense breast tissue is very common and is not abnormal but dense breast tissue can make it harder to find cancer on a ma mmogram. Also, dense breast tissue may increase their breast cancer risk. This information about the result of the mammogram report was provided to the patient to raise their awareness. Use this report when you speak with the patient about their risks for breast cancer, which includes their family hist ory. At that time, you may recommend for more screening tests (Ultrasound or MRI) as they might be us eful based on their risk. A negative radiographic report should not delay biopsy if a dominant or clinically suspicious mass is present. Up to ten percent of cancers are not identified on mammography. A negative report may reinforce clinical impression. Adenosis and dense breasts may obscure an underlying neoplasm. False positive reports average 6 to 10%. Patient will receive a letter notifying them of these results.
== END 2025-02-05 00:42 ==
LOC: DI 00:22
PROVIDERS: PCP Family Medicine; Visit Provider Family Medicine
DX: Z12.31 Encounter for screening mammogram for malignant neoplasm of breast (principal); R92.323 Mammographic fibroglandular density, bilateral breasts
CPT/HCPCS: 77063; 77067

== ENCOUNTER 2025-06-29 00:46 | Outpatient (CLI) | payer OTHER, SELFPAY ==
[2025-06-29 09:30] LABS: Abs Immature Grans 0.02 10^3/uL (0.0-0.06); HCT 41.5 % (36.0-46.0); HGB 13.3 g/dL (11.2-15.7); Immature Grans % 0.2 %; MCH 26.9 pg (27.0-33.0); MCHC 32.0 % (32.0-36.0); MCV 84 fL (80-95); MPV 8.2 fL (8.0-11.0); Platelet Count 346 10^3/uL (130-400); RBC 4.95 10^6/uL (3.93-5.22); RDW 13.1 % (11.7-14.6); RDW-SD 39.8 fL; WBC 8.88 10^3/uL (4.4-10.8)
[2025-06-29 10:12] LABS: ALT 23 U/L (14-59); AST 16 U/L (15-37); Albumin 3.8 g/dL (3.4-5.0); Alkaline Phosphatase 95 U/L (46-116); Anion Gap 7.4 mmol/L (3-11); BUN 13 mg/dL (7-18); Bilirubin, Total 0.5 mg/dL (0.2-1.0); CO2 30.6 mmol/L (21.0-32.0); Calcium 9.2 mg/dL (8.5-10.1); Chloride 100 mmol/L (98-107); Estimated GFR 89.15 (mL/min/1.73m2); Glucose 108 mg/dL (74-106); LDL CHOLESTEROL 167 mg/dL (<100); Potassium 4.3 mmol/L (3.5-5.1); Sodium 138 mmol/L (136-145); Total Protein 7.6 g/dL (6.4-8.2)
[2025-06-29 10:30] LABS: C-Reactive Protein 0.89 mg/dL (<or=0.5)
[2025-06-29 10:50] LABS: Hemoglobin A1C 6.0 % (<5.7)
== END 2025-06-29 00:47 | disposition home or self-care (01) ==
LOC: LBO 00:47
PROVIDERS: PCP Family Medicine; Visit Provider Family Medicine
DX: K51.90 Ulcerative colitis, unspecified, without complications (principal); R73.09 Other abnormal glucose; E78.5 Hyperlipidemia, unspecified
CPT/HCPCS: 36415; 80053; 83721; 83036; 85025; 86140

== ENCOUNTER 2025-10-03 02:14 | Outpatient (CLI) | payer OTHER, SELFPAY ==
[2025-10-03 07:53] LABS: Abs Immature Grans 0.02 10^3/uL (0.0-0.06); HCT 41.2 % (36.0-46.0); HGB 13.3 g/dL (11.2-15.7); Immature Grans % 0.3 %; MCH 26.7 pg (27.0-33.0); MCHC 32.3 % (32.0-36.0); MCV 83 fL (80-95); MPV 8.0 fL (8.0-11.0); Platelet Count 361 10^3/uL (130-400); RBC 4.98 10^6/uL (3.93-5.22); RDW 13.1 % (11.7-14.6); RDW-SD 39.3 fL; WBC 7.39 10^3/uL (4.4-10.8)
[2025-10-03 08:33] LABS: C-Reactive Protein 2.78 mg/dL (<=0.50)
[2025-10-03 08:34] LABS: ALT 13 U/L (10-49); AST 16 U/L (<34); Albumin 4.2 g/dL (3.2-5.0); Alkaline Phosphatase 85 U/L (46-116); Anion Gap 7.8 mmol/L (3-11); BUN 16 mg/dL (9-23); Bilirubin, Total 0.40 mg/dL (0.2-1.2); CO2 29.2 mmol/L (20.0-31.0); Calcium 8.9 mg/dL (8.3-10.6); Chloride 102 mmol/L (98-107); Glucose 138 mg/dL (74-106); Potassium 4.2 mmol/L (3.5-5.1); Sodium 139 mmol/L (136-145); Total Protein 7.2 g/dL (5.7-8.2)
[2025-10-03 18:25] LABS: HBs Antibody, Quant 19.9 mIU/mL (See Note); Hepatitis B Surface Ab Positive (See Note)
[2025-10-03 19:09] LABS: Hep B Core Antibody Negative (Negative)
[2025-10-08 14:00] LABS: TB Interpretation Negative (Negative); TB1 Ag minus Nil 0.00 IU/mL; TB2 Ag minus Nil 0.00 IU/mL
== END 2025-10-03 02:15 | disposition home or self-care (01) ==
LOC: LBO 02:14
PROVIDERS: PCP Family Medicine; Visit Provider Internal Medicine Gastroenterology
DX: K51.011 Ulcerative (chronic) pancolitis with rectal bleeding (principal)
CPT/HCPCS: 36415; 80053; 86704; 86706; 87340; 85025; 86140; 86480

== ENCOUNTER 2025-10-29 16:23 | Outpatient (REF) | payer OTHER, SELFPAY | END 2025-10-29 16:24 | disposition home or self-care (01) | LOC: NCHCN 16:23 | PROVIDERS: PCP Family Medicine; Visit Provider Internal Medicine Gastroenterology | DX: K51.011 Ulcerative (chronic) pancolitis with rectal bleeding (principal) | CPT/HCPCS: 83993 ==